=== PATIENT | female | born 2000 | race Caucasian/White ===

== ENCOUNTER 2020-06-27 00:15 | Emergency (ER) | payer BC, SELFPAY ==
[2020-06-27 00:18] VITALS: BP 117/60; PULSE 118; RESP 16; TEMP 35.9; O2SAT 99
--- NOTE | 2020-06-27 00:26 | ED.FEMALEGU ---
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 She reports that she had some pelvic pressure earlier like she may need to urinate, then when she stood up she noted that her pants were wet. She was afraid that her water may have broken. No abdominal pain, vaginal bleeding, discharge. Related Data Home Medications Medication Instructions Recorded Confirmed No Home Medications 06/27/20 06/27/20 Allergies Allergy/AdvReac Type Severity Reaction Status Date / Time No Known Allergies Allergy Unknown Verified 06/27/20 00:23 Review of Systems Review of Systems: All systems reviewed & are unremarkable except as noted in HPI and below PMFSH Past Medical History Medical History Healthy adult Surgical History Surgical History History of appendectomy Family History Family History Father Diabetes mellitus Social History Social History Smoking status: Never smoker Alcohol intake: never Exam Const: General: healthy appearing, no acute distress and alert Orientation/consciousness: patient oriented x3 HENMT: Head: normal to inspection Neck: Neck: normal visual inspection and no lymphadenopathy Chest: Chest palpation & inspection: no tenderness Resp: Effort & Inspection: normal respiratory effort Auscultation: clear to auscultation bilaterally, no rales, no rhonchi and no wheezes Cardio: Jugular venous distension: no JVD Rate: regular rate Rhythm: regular rhythm Heart sounds: no murmurs GI: Inspection: non-distended GI Palp: Yes Soft to palpation and No Tenderness to palpation present (GI) Skin: General skin exam: normal color Neuro: General: patient oriented x3 and moves all extremities Speech: normal speech Extrem: General: no edema Psych: Appearance: well kempt Affect: Anxious affect present Course Vital Signs Vital signs: Vital Signs Temperature 35.9 C L 06/27/20 00:18 Pulse Rate 118 H 06/27/20 00:18 Respiratory Rate 16 06/27/20 00:18 Blood Pressure 117/60 06/27/20 00:18 Pulse Oximetry 99 06/27/20 00:18 Temperature 35.9 C L 06/27/20 00:18 Pulse Rate 118 H 06/27/20 00:18 Respiratory Rate 16 06/27/20 00:18 Blood Pressure 117/60 06/27/20 00:18 Pulse Oximetry 99 06/27/20 00:18 Procedures Other Procedure Procedure 1: Other Procedure: Bedside transabdominal US IUP seen. Subtle suggestion of early heart activity. More consistent with 7-8 week gestation. MDM - Female Genitourinary MDM Narrative Medical decision making narrative: History benign. US reassuring. Discharge Plan Discharge Clinical Impression: Patient Disposition: Home, Self-Care Condition: Stable Instructions: (ED) Prescriptions: No Action No Home Medications RF: 0 Follow-up/Referrals: Rom Arango MD [Primary Care Provider] -
== END 2020-06-27 01:06 | disposition home or self-care (01) ==
PROVIDERS: Emergency Provider Emergency Medicine; PCP Obstetrics & Gynecology
DX: O26.891 Other specified pregnancy related conditions, first trimester (principal); Z3A.01 Less than 8 weeks gestation of pregnancy
CPT/HCPCS: 99281

== ENCOUNTER 2020-08-30 11:53 | Emergency (ER) | payer BC, SELFPAY ==
--- NOTE | ~2020-08-30 | US_ITS ---
EXAMINATION: US OB follow up DATE: 08/30/2020 13:38 INDICATION: Low abdominal pain. TECHNIQUE: Real-time ultrasound of the pelvis was performed. COMPARISON: None. FINDINGS: There is a single living fetus in breech presentation. The placenta is posterior, 3.4 cm from the ce rvix. heart rate is 137 beats per minute (bpm). The amniotic fluid volume is subjectively danielle l. The cervical length is normal on transabdominal images. The following biometric data were obtained: Biparietal diameter (BPD): 3.2 cm; head circumference (HC): 12.1 cm; abdominal circumference (AC): 10 .4 cm; femur length (FL): 1.8 cm. These measurements are concordant. Estimated weight is 137 g +/- 21 g, which correlates with 25th percentile when 02/13/21 is used as estimated date of delivery. As single measurements, these parameters are each equal to the following estimated gestational ages: BPD: 16 weeks 0 days. HC: 16 weeks 0 days. AC: 16 weeks 2 days. FL: 15 weeks 2 days. estimated gestational age based solely on measurements from this exam is 15 weeks 6 days +/- 1 weeks 1 days. IMPRESSION: 1. Single living fetus in breech presentation. 2. Estimated weight is 137 g +/- 21 g, which correlates with 25th percentile when 02/13/21 is u sed as estimated date of delivery. Reviewed, dictated and finalized at location A. AND MISCELLANEOUS REMITTANCE CLERK IMPRESSION: 1. Single living fetus in breech presentation. 2. Estimated weight is 137 g +/- 21 g, which correlates with 25th percen tile when 02/13/21 is used as estimated date of delivery.
[2020-08-30 11:55] VITALS: BP 111/61; PULSE 76; RESP 20; TEMP 35.9; O2SAT 100
[2020-08-30] MEDS: SODIUM CHLORIDE 0.9% IV 1,000 ML 999 ML IV CONT (12:28)
[2020-08-30 12:37] VITALS: BP 111/66; PULSE 70; RESP 14; TEMP 36.4; O2SAT 100
--- NOTE | 2020-08-30 12:37 | ED.FEMALEGU ---
HPI - Female Genitourinary General Chief complaint: Abdominal Pain Stated complaint: 16 wks , abd pain Time Seen by Provider: 08/30/20 12:20 Source: patient Mode of arrival: ambulatory Limitations: no limitations History of Present Illness HPI Narrative: Patient is a 18-year-old at 16 weeks complaining of lower abdominal pain that started yesterday. Patient had nausea but states that it has been going on throughout her and its nothing new. Patient denies any vaginal bleeding, vaginal discharge, urinary symptoms, fever or chills. Patient states that she is in second trimester ultrasound and it was normal. Patient had care during this . Related Data Home Medications Medication Instructions Recorded Confirmed ondansetron HCl 08/30/20 prochlorperazine maleate 08/30/20 promethazine 08/30/20 Allergies Allergy/AdvReac Type Severity Reaction Status Date / Time No Known Allergies Allergy Unknown Verified 08/30/20 11:57 Review of Systems Review of Systems: All systems reviewed & are unremarkable except as noted in HPI and below Constitutional: Constitutional: Denies body ache(s), Denies chills, Denies excessive sweating, Denies fatigue, Denies fever(s), Denies headache(s), Denies lethargy, Denies malaise, Denies weakness and Denies weight loss Eyes: Eyes: Denies blurry vision, Denies change in vision and Denies loss of vision ENT: Denies dizziness, Denies ear discharge, Denies headache(s), Denies lip swelling, Denies epistaxis, Denies nasal congestion, Denies neck pain, Denies throat swelling and Denies tongue swelling Cardiovascular: Cardiovascular: Denies chest pain, Denies chest pain at rest, Denies chest pain with activity, Denies diaphoresis, Denies rapid heart rate, Denies edema, Denies irregular heart rhythm, Denies lightheadedness, Denies palpitations, Denies dyspnea and Denies dyspnea on exertion Respiratory: Respiratory: Denies chest congestion, Denies cough, Denies hemoptysis, Denies dyspnea and Denies dyspnea on exertion Gastrointestinal: Gastrointestinal: Denies melena, Denies hematochezia, Denies diarrhea, Denies nausea, Denies vomiting and Denies hematemesis Musculoskeletal: Musculoskeletal: Denies abnormal gait, Denies deformity, Denies joint swelling, Denies limited range of motion, Denies neck pain and Denies numbness Neurologic: Denies Abnormal speech present, Denies abnormal gait, Denies confusion, Denies dizziness, Denies headache(s), Denies focal weakness, Denies loss of vision, Denies numbness, Denies Other visual disturbances, Denies Sensory deficit (Neuro) and Denies weakness Psychiatric: Psychiatric: Denies confusion, Denies depression, Denies auditory hallucinations, Denies homicidal ideation and Denies suicidal ideation Endocrine: Endocrine: Denies cold intolerance, Denies excessive sweating, Denies fatigue, Denies heat intolerance and Denies palpitations Hematologic/Lymphatic: Hematologic/Lymphatic: Denies easy bleeding and Denies easy bruising Allergic/Immunologic: Allergic/Immunologic: Denies lip swelling, Denies throat swelling and Denies tongue swelling PMFSH Past Medical History Medical History Healthy adult Surgical History Surgical History History of appendectomy Family History Family History Father Diabetes mellitus Social History Social History Smoking status: Never smoker Alcohol intake: never Exam Const: General: cooperative, healthy appearing, comfortable, no acute distress, well developed, alert and awake; No confusion Orientation/consciousness: oriented to person, oriented to place, oriented to time, patient oriented x3 and No confusion Limitations: no limitations HENMT: Head: normal to inspection,
[2020-08-30 12:47] LABS: Basophils Percent Auto 0.2 % (0.2-1.2); Eosinophils Absolute Auto 0.1 K/mm3 (0-0.3); Eosinophils Percent Auto 0.7 % (0-4.4); Hematocrit 40.2 % (37.0-47.0); Hemoglobin 13.7 g/dL (12.0-15.0); Immature Granulocyte Absolute 0.05 K/mm3 (0.00-0.031); Immature Granulocyte Percent A 0.6 % (0-0.5); Lymphocytes Absolute Auto 1.64 K/mm3 (0.9-3.2); Lymphocytes Percent Auto 20.3 % (18.3-44.2); Mean Corpuscular HGB Conc 34.1 g/dl (32-36); Mean Corpuscular Hemoglobin 31.3 pg (26-34); Mean Corpuscular Volume 91.8 fl (80-100); Mean Platelet Volume 10.8 fl (7.4-10.4); Monocytes Absolute Auto 0.4 K/mm3 (0.1-0.6); Monocytes Percent Auto 5.4 % (2.6-8.5); Neutrophils Absolute Auto 5.9 K/mm3 (1.3-6.7); Neutrophils Percent Auto 72.8 % (45.5-73.1); Platelet Count Result 180 k/mm3 (150-375); Red Blood Count 4.38 M/mm3 (4.2-5.4); Red Cell Distribution Width 12.6 % (11.5-14.5); White Blood Count 8.1 K/mm3 (4.5-10.0)
[2020-08-30 13:05] LABS: Alanine Aminotransferase 9 U/L (4-35); Albumin Level 3.9 g/dL (3.5-5.1); Alkaline Phosphatase 57 U/L (38-126); Anion Gap 5 mmol/L (8-16); Aspartate Amino Transferase 19 U/L (14-36); Bilirubin,Total 0.3 mg/dL (0.2-1.3); Blood Urea Nitrogen 7 mg/dL (7-17); Calcium 8.6 mg/dL (8.4-10.2); Carbon Dioxide 26 mmol/L (22-30); Chloride 107 mmol/L (98-107); Estimated CRCL calculation 201 ml/min; Estimated Glomerular Filt Rate > 60; Glucose 82 mg/dL (65-105); Lipase 23 U/L (23-300); Potassium 3.9 mmol/L (3.4-5.0); Sodium 138 mmol/L (137-145)
[2020-08-30 14:08] LABS: Add Urine Microscopic? YES; Appearance Urine Clear (Clear); Bacteria Urine Trace /hpf; Bilirubin Urine Negative (Negative); Blood Urine 2+ (Negative); Color Urine Yellow (Yellow); Glucose Urine UA Negative (Negative); Ketones Urine Negative (Negative); Leukocyte Esterase Ur Negative LEU/UL (Negative); Mucus Urine Rare /lpf; Nitrate Urine Negative (Negative); Protein Urine Negative (Negative); RBC Urine 0-2 /hpf (0-2); Specific Grav Ur 1.013 (1.001-1.035); Squamous Epithelial Cell Urine Many /hpf (Few); Urobilinogen Urine Negative mg/dL (<2.0); WBC Urine 0-3 /hpf
[2020-08-30] MEDS: ACETAMINOPHEN 325 MG TABLET 650 MG PO (14:19)
[2020-08-30 14:22] VITALS: BP 106/67; PULSE 57; RESP 18; TEMP 35.9; O2SAT 98
== END 2020-08-30 14:45 | disposition home or self-care (01) ==
PROVIDERS: Emergency Medicine; Emergency Provider Emergency Medicine; PCP Obstetrics & Gynecology
DX: O26.892 Other specified pregnancy related conditions, second trimester (principal); R10.30 Lower abdominal pain, unspecified; Z3A.16 16 weeks gestation of pregnancy
CPT/HCPCS: 36415; 76816; 80053; 81001; 83690; 84702; 85025; 96360; 99284; A9270; J7030

== ENCOUNTER 2020-12-16 22:32 | Observation (INO) | payer BC, SELFPAY ==
--- NOTE | 2020-12-16 22:32 | OBADM ---
This patient, Vanessa Thayer, admitted to the OB room [facility] for observation. Patient/family oriented to hospital policies and general routines including ID bracelet, bed and alarms, visiting hours, pain management, procedures, bathroom and other care routines, personal items, smoking policy, room service/diet, and visiting hours. Patient/Family are encouraged to report perceived risks to care and to ask questions if they do not understand what they are told or what they should do.
[2020-12-16 22:40] VITALS: BMI 32.1
--- NOTE | 2020-12-16 23:25 | PC.NURSE ---
Dr. Arango here and aware of pt assessment. Orders received. Pt contractions palpate mild and difficult to trace.
--- NOTE | 2020-12-16 23:50 | PC.NURSE ---
Dr. Arango on unit.; Orders for terbutaline. Pt feel mild contractions.
[2020-12-17] VITALS: BP 95/48; PULSE 87
--- NOTE | 2020-12-17 08:25 | PM.OBTRLD ---
OB - Triage/Final Diagnosis Visit Information Reason for evaluation: threatened labor Comments/Additional reasons for admission: I have assessed the risk for this patient, Vanessa Thayer, and determined that she would benefit from observation care. Evaluation Vital signs: Vital Signs - 24 hr 12/17/20 00:00 Pulse Rate 87 Blood Pressure 95/48 L
--- NOTE | 2020-12-18 17:10 | PM.OBTRLD ---
OB - Triage/Final Diagnosis Visit Information Reason for evaluation: threatened labor Comments/Additional reasons for admission: I have assessed the risk for this patient, Vanessa Thayer, and determined that she would benefit from observation care.
== END 2020-12-17 01:01 | disposition home or self-care (01) ==
PROVIDERS: Admitting Provider Obstetrics & Gynecology; Visit Provider Obstetrics & Gynecology
DX: O47.03 False labor before 37 completed weeks of gestation, third trimester (principal); Z3A.31 31 weeks gestation of pregnancy
CPT/HCPCS: G0378; G0379

== ENCOUNTER 2021-01-20 00:40 | Observation (INO) | payer BC, SELFPAY ==
[2021-01-20 01:02] VITALS: BMI 32.5
[2021-01-20 01:08] VITALS: BP 107/63; PULSE 91
--- NOTE | 2021-01-20 02:24 | OBADM ---
This patient, Vanessa Thayer, admitted to the OB room Labor/Delivery/Recovery 106 for observation. Patient/family oriented to hospital policies and general routines including ID bracelet, bed and alarms, visiting hours, pain management, procedures, bathroom and other care routines, personal items, smoking policy, room service/diet, and visiting hours. Patient/Family are encouraged to report perceived risks to care and to ask questions if they do not understand what they are told or what they should do.
--- NOTE | 2021-01-20 02:42 | PC.NURSE ---
Called Dr. Rodas cell phone, report given on FHT's, variables, reactive tracing, contractions, sve, pain and ROM plus being negative. Orders to d/c home
--- NOTE | 2021-01-27 07:24 | PM.OBTRLD ---
OB - Triage/Final Diagnosis Visit Information Comments/Additional reasons for admission: I have assessed the risk for this patient, Vanessa Thayer, and determined that she would benefit from observation care. Final Diagnosis (1) Vaginal discharge during : Code(s): O26.899 - Other specified related conditions, unspecified trimester; N89.8 - Other specified noninflammatory disorders of vagina Status: Acute
== END 2021-01-20 03:04 | disposition home or self-care (01) ==
PROVIDERS: Admitting Provider Obstetrics & Gynecology; Visit Provider Obstetrics & Gynecology
DX: O26.893 Other specified pregnancy related conditions, third trimester (principal); N89.8 Other specified noninflammatory disorders of vagina; Z3A.36 36 weeks gestation of pregnancy
CPT/HCPCS: 84112; G0378; G0379

== ENCOUNTER 2021-02-01 17:40 | Inpatient (IN) | payer MEDICAID, SELFPAY ==
[2021-02-01] VITALS (35 sets, daily range): BP systolic 94–134; BP diastolic 56–89; PULSE 59–129; TEMP 36.3–36.7; O2SAT 90–100; BMI 33.3
[2021-02-01] MEDS: LACTATED RINGERS 1,000 ML 125 ML IV CONT (19:05)
[2021-02-01] MEDS: OXYTOCIN 30 UNITS/NS 500 ML 30 UNITS/500 ML BAG IV CONT (19:05)
[2021-02-01 19:18] LABS: Basophils Percent Auto 0.2 % (0.2-1.2); Eosinophils Percent Auto 0.2 % (0-4.4); Hematocrit 35.6 % (37.0-47.0); Hemoglobin 11.8 g/dL (12.0-15.0); Immature Granulocyte Absolute 0.17 K/mm3 (0.00-0.031); Immature Granulocyte Percent A 1.3 % (0-0.5); Lymphocytes Percent Auto 13.7 % (18.3-44.2); Mean Corpuscular HGB Conc 33.1 g/dl (32-36); Mean Corpuscular Hemoglobin 30.1 pg (26-34); Mean Corpuscular Volume 90.8 fl (80-100); Monocytes Absolute Auto 0.8 K/mm3 (0.1-0.6); Monocytes Percent Auto 6.1 % (2.6-8.5); Neutrophils Absolute Auto 10.3 K/mm3 (1.3-6.7); Neutrophils Percent Auto 78.5 % (45.5-73.1); Platelet Count Result 228 k/mm3 (150-375); Red Blood Count 3.92 M/mm3 (4.2-5.4); Red Cell Distribution Width 13.3 % (11.5-14.5); White Blood Count 13.1 K/mm3 (4.5-10.0)
--- NOTE | 2021-02-01 19:26 | LDADM ---
This patient, Vanessa Thayer, was admitted to Labor/Delivery/Recovery 106 on 02/01/21 at 17:40. Plans for labor, pain management and were discussed with patient. Patient/family oriented to hospital policies and general routines including ID bracelet, bed and alarms, visiting hours, pain management, procedures, bathroom and other care routines, personal items, smoking policy, room service/diet and guest tray routines, security routines, and visiting hours. Patient/Family are encouraged to report perceived risks to care and to ask questions if they do not understand what they are told or what they should do. See OBIX for further documentation.
[2021-02-01] MEDS: fentaNYL CITRATE INJ (*CRX) 100 MCG/2 ML VIAL 50 MCG IV PUSH ×2 (22:24→22:59)
[2021-02-01] MEDS: ONDANSETRON INJ 4 MG/2 ML VIAL IV PUSH (23:01)
[2021-02-02] VITALS (143 sets, daily range): BP systolic 89–148; BP diastolic 37–97; PULSE 51–134; RESP 16–18; TEMP 36.4–37.2; O2SAT 92–100
[2021-02-02] MEDS: fentaNYL CITRATE INJ (*CRX) 100 MCG/2 ML VIAL IV PUSH ×2 (00:05→01:05)
--- NOTE | 2021-02-02 01:51 | WPDANESEPPF ---
Anes - Initial Pre Proc Eval Date/Time: 02/02/21 01:51 Surgeon: Rom Arango MD Pre Op Diagnosis: SROM Patient Data Age: 20 Gender: F Height: 1.55 m Weight: 80 kg Last Vital Signs Pulse 60 02/02/21 01:48 BP 111/56 L 02/02/21 01:48 Pulse Ox 99 02/02/21 01:50 Allergies Allergy/AdvReac Type Severity Reaction Status Date / Time No Known Allergies Allergy Unknown Verified 02/01/21 22:00 Home Medications Medication Instructions Recorded Confirmed Type sertraline [Zoloft] 50 mg PO DAILY 12/17/20 02/01/21 History Classic 1 tablet PO DAILY 01/20/21 02/01/21 History valacyclovir [Valtrex] 500 mg PO Q12H 01/24/21 01/24/21 History Laboratory Tests 02/01/21 02/01/21 02/01/21 19:07 19:07 19:07 WBC 13.1 K/mm3 H K/mm3 (4.5-10.0) RBC 3.92 M/mm3 L M/mm3 (4.2-5.4) Hgb 11.8 g/dL L g/dL (12.0-15.0) Hct 35.6 % L % (37.0-47.0) MCV 90.8 fl fl (80-100) MCH 30.1 pg pg (26-34) MCHC 33.1 g/dl g/dl (32-36) RDW 13.3 % % (11.5-14.5) Plt Count 228 k/mm3 k/mm3 (150-375) MPV 11.0 fl H fl (7.4-10.4) Immature Gran % (Auto) 1.3 % H % (0-0.5) Neut % (Auto) 78.5 % H % (45.5-73.1) Lymph % (Auto) 13.7 % L % (18.3-44.2) Rowan % (Auto) 6.1 % % (2.6-8.5) Eos % (Auto) 0.2 % % (0-4.4) Baso % (Auto) 0.2 % % (0.2-1.2) Lymph # (Auto) 1.80 K/mm3 K/mm3 (0.9-3.2) Rowan # (Auto) 0.8 K/mm3 H K/mm3 (0.1-0.6) Eos # (Auto) 0.0 K/mm3 K/mm3 (0-0.3) Baso # (Auto) 0.0 K/mm3 K/mm3 (0.0-0.1) Abs Immat Gran (auto) 0.17 K/mm3 H K/mm3 (0.00-0.031) Absolute Neuts (auto) 10.3 K/mm3 H K/mm3 (1.3-6.7) Absolute Nucleated RBC 0.0 K/mm3 K/mm3 (0.0-0.012) Nucleated RBC % 0.0 % % (0.0-0.2) RPR Pending Blood Type O Positive Antibody Screen Negative Patient hx anesthesia problems: none Family hx anesthesia problems: none PMFSH Past Medical History Medical History (Updated 02/02/21 @ 01:51 by Clark Jones MD) Anxiety Depression Healthy adult Obesity Surgical History Surgical History History of appendectomy Family History Family History Father Diabetes mellitus Mother Lupus Social History Social History Years smoked: 2 Smoking status: Former smoker Tobacco type: cigarettes Second hand tobacco smoke exposure: No Smoking end date: 07/25/20 Alcohol intake: never Substance use: former Other substance usage details: USES CBD OIL FOR ANXIETY Last use: PRIOR TO Spiritual care concerns: No Anes - Eval Final PreProcedure Day of Procedure 02/02/21 01:51 Patient weight: obese Heart: regular rate and rhythm Airway: Mallampati scale class II Anesthetic plan: proceed Anesthesia type and monitoring: regional epidural (for labor) and standard monitoring Informed Consent: The patient's anesthetic plan and its attendant risks and benefits were discussed with the patient/family/POA. Questions were solicited and answers provided to the satisfaction of the patient/family/POA.
[2021-02-02] MEDS: LORATADINE 10 MG TABLET PO (04:48)
[2021-02-02] MEDS: AMPICILLIN 2 GM/NS 100 ML 2 GM/100 ML BAG IVPB (04:49)
[2021-02-02] MEDS: ONDANSETRON INJ 4 MG/2 ML VIAL IV PUSH ×2 (06:06→11:05)
[2021-02-02] MEDS: diphenhydrAMINE HCl INJ 50 MG/ML VIAL 25 MG IV PUSH (06:08)
[2021-02-02 07:57] LABS: Rapid Plasma Reagin Non-Reactive (NonReactive)
[2021-02-02] MEDS: AMPICILLIN 1 GM/NS 50 ML 1 GM/50 ML BAG IVPB (08:34)
--- NOTE | 2021-02-02 10:21 | WPDHPUPDATE1 ---
History and Physical Update Update Date/Time: 02/02/21 10:21 History and Physical has been reviewed, including an updated exam of the patient. There are NO changes in the patient's condition. Risks, benefits, and alternatives have been discussed and questions answered. Patient agrees to proceed with procedure.
--- NOTE | 2021-02-02 10:21 | WPDOBADMIT ---
Obstetrics - Admit Note Admission Note: record reviewed. No pertinent additions to the history and/or any subsequent changes in the physical findings that are not consistent with the expected course of the were found. Additions to the history and/or subsequent changes in the physical findings follow. None.
--- NOTE | 2021-02-02 10:21 | PM.OBPRVD ---
OB - Delivery Note Procedure Route of delivery: Episiotomy description: None Laceration Description: None Specimen: No Quantitative Blood Loss (ml): 200 Anesthesia type: Epidural Disposition: floor Narrative: Patient prepped draped usual manner for this procedure. Maternal expulsive efforts readily delivered vertex. Rest of baby was delivered without difficulty. Cord clamped and cut placenta delivered spontaneously. Cervix vagina and vulva were inspected with no lacerations or tears. Immediate postop condition of mother and baby were both excellent. Baby Weeks of gestation at delivery: 38 gender: Female score one minute: 8 score five minutes: 9
[2021-02-02] MEDS: OXYTOCIN 30 UNITS/NS 500 ML 30 UNITS/500 ML BAG 125 UNITS IV CONT (10:32)
[2021-02-02] MEDS: ACETAMINOPHEN 325 MG TABLET 650 MG PO ×3 (10:40→22:08)
[2021-02-02] MEDS: IBUPROFEN 600 MG TABLET PO (12:33)
[2021-02-02] MEDS: SERTRALINE HCL 50 MG TABLET PO (12:56)
[2021-02-02] MEDS: WITCH HAZEL 40 PADS 1 PAD TOPICAL (13:27)
[2021-02-02] MEDS: BENZOCAINE 20% AER SPR (*SP) 56 GM CAN 1 SPRAY TOPICAL (13:27)
[2021-02-02] MEDS: LANOLIN (LANSINOH) 7.5 GM CREAM 1 APPLIC TOPICAL (13:28)
[2021-02-02] MEDS: DOCUSATE SODIUM 100 MG CAPSULE PO (17:29)
[2021-02-03] MEDS: ACETAMINOPHEN 325 MG TABLET 650 MG PO ×2 (04:32→16:35)
[2021-02-03 04:35] VITALS: BP 118/69; PULSE 66; RESP 18; TEMP 36.6; O2SAT 97
[2021-02-03] MEDS: IBUPROFEN 600 MG TABLET PO ×3 (04:49→19:31)
[2021-02-03 05:47] LABS: Hematocrit 35.1 % (37.0-47.0); Hemoglobin 11.5 g/dL (12.0-15.0)
--- NOTE | 2021-02-03 07:52 | PM.OBDSVD ---
DS: Admitting Diagnosis Admitting Diagnosis Admitting Diagnosis: OB - DS: Summary OB Procedures : None OB Procedures Intrapartum: Spontaneous Vag Delivery OB Procedures: : None Time Spent with Patient Time attestation: Total time spent providing and/or coordinating discharge services: DS: Data Data Completed and Pending Labs on day of discharge: Labs from last 24 hours 02/03/21 02/01/21 04:42 19:07 Hgb 11.5 L Hct 35.1 L RPR Non-reactive Discharge Plan Discharge Discharging Clinician: Rom Arango Patient Disposition: Home, Self-Care Activity: as tolerated Diet: as tolerated Patient Instructions: Antibiotic Form Stand Alone Forms: General Discharge Information Follow-up/Referrals: Rom Arango MD [Physician] - 3 Weeks Discharge Medications: New hydrocodone-acetaminophen 5-325 mg Tablet 1 tablet PO Q6H Qty: 12 RF: 0 ibuprofen 600 mg Tablet 600 mg PO Q6H PRN (Reason: Cramping) Qty: 30 RF: 0 Continued Classic 28 mg iron- 800 mcg Tablet 1 tablet PO DAILY RF: 0 sertraline [Zoloft] 50 mg tablet 50 mg PO DAILY RF: 0 Discontinued valacyclovir [Valtrex] 500 mg Tablet 500 mg PO Q12H RF: 0 Date of admission: 02/01/21 17:40 Primary Care Provider: PHYSICIAN,INDUSTRIAL ENERGY ENGINEER Admitting Provider: Rom Arango Attending physician on admission: Rom Arango Condition: Stable
--- NOTE | 2021-02-03 07:58 | WPDANLDPN2 ---
Anes-Prog Note L&D Date/Time: 02/03/21 07:58 Neuro status: Neuro function grossly intact. Cardiovascular status: normal Respiratory status: normal Airway patency: baseline Mental status: baseline Post-Op hydration status: normal Vital Signs: Last Vital Signs Temp 36.6 C 02/03/21 04:35 Pulse 66 02/03/21 04:35 Resp 18 02/03/21 04:35 BP 118/69 02/03/21 04:35 Pulse Ox 97 02/03/21 04:35 Pain score (VAS): 0 I/O: Intake & Output 02/02/21 02/02/21 02/03/21 15:59 23:59 07:59 Intake Total 1650 Output Total 250 Balance 1400 Post-procedural complaints: none Patient feedback: Patient satisfied with anesthetic care.
--- NOTE | 2021-02-03 09:15 | PC.NURSE ---
Primary RN requested feeding observation. Infant is able to freely thrust tongue past gum ridge. Skin is intact on both nipples, no redness and bruising noted. Reviewed infant feeding cues, frequencies, duration of feedings, feeding elimination flow sheet, and signs of adequate intake. Demonstrated stimulation techniques to wake for feeding. Assisted with to breast. Reviewed positioning/alignment in cross cradle, holding breast in ?U? hold and guided asymmetrical latch on. able to latch correctly. nursed eagerly, with steady draws and frequent swallowing for bursts followed with pausing. Suggested mother stimulate while feeding to increase stimulate, increase intake and to assist with maintaining deep latch. Reviewed signs of a correct latch, effective nursing and suck swallow ratio. would slip to shallow latch, mother reports tenderness. Demonstrated how to adjust latch more deeply while feeding. Mother reports she can feel change in latch and has no tenderness. Nipple care reviewed of lanolin after feedings, warm compresses and gel pads as needed. Instructed mother to call out for RN assistance if she is unable to latch infant for feeding or she has discomfort with nursing.
[2021-02-03 09:20] VITALS: BP 129/85; PULSE 64; RESP 16; TEMP 36.6; O2SAT 95
[2021-02-03] MEDS: DOCUSATE SODIUM 100 MG CAPSULE PO (09:30)
[2021-02-03] MEDS: MULTIVIT/MIN/PREN/FOL AC/IRON TABLET 1 TAB PO (09:30)
[2021-02-03 20:00] VITALS: BP 106/67; PULSE 61; RESP 16; TEMP 36.8; O2SAT 98
[2021-02-04] MEDS: IBUPROFEN 600 MG TABLET PO ×2 (01:27→07:43)
[2021-02-04] MEDS: ACETAMINOPHEN 325 MG TABLET 650 MG PO (05:17)
[2021-02-04 07:30] VITALS: BP 119/69; PULSE 118; RESP 16; TEMP 36.9; O2SAT 96
[2021-02-04] MEDS: MULTIVIT/MIN/PREN/FOL AC/IRON TABLET 1 TAB PO (07:43)
[2021-02-04] MEDS: MEASLES,MUMPS,RUBELLA VACCINE 0.5 ML VIAL (07:45)
--- NOTE | 2021-02-04 08:15 | PC.NURSE ---
Mother is able to independently latch infant with appropriate positioning/alignment. She denies any nipple discomfort, is feeding as required and waking to feed if needed. has had at least 8 effective feedings in the past 24 hours, and is currently meeting outcomes for weight, output, jaundice and feeding frequencies. Mother states she feels confident to continue effective at home. Reviewed transition to breast milk, signs of adequate intake, and engorgement/relief. Instructed to call ICP if intake/output less than required. Reviewed regular medications mother is taking. Information provided per Lora. Reviewed community resources on the [facility] website and in the Mom/Baby guide. Information on outpatient services provided. Mother has no further questions at this time.
--- NOTE | 2021-02-04 10:44 | PC.NURSE ---
Patient viewed the discharge video Mother & Baby Care, The First Two Weeks . Patient was given the opportunity and encouraged to ask questions. Patient verbalized understanding of information shared and has been given the mother/baby guide for home reference.
[2021-02-05 08:36] VITALS: BP 121/78; PULSE 61; RESP 20; TEMP 37.1; O2SAT 100
--- NOTE | 2021-02-06 12:23 | P.DS_ITS ---
DS: Admitting Diagnosis Admitting Diagnosis Admitting Diagnosis: OB - DS: Summary OB Procedures : None OB Procedures Intrapartum: Spontaneous Vag Delivery OB Procedures: : None Time Spent with Patient Time attestation: Total time spent providing and/or coordinating discharge services: Discharge Plan Discharge Consulting providers: Clark Jones Discharging Clinician: Rom Arango Patient Disposition: Home, Self-Care Activity: as tolerated Diet: as tolerated Discharge Instructions: Education: Mom and Baby Guide Given to: Mother Follow-Up: Call your delivering provider's office for an appointment to be seen in: 3 Weeks Mom and baby should come to the [facility] for the follow-up appointment. Appointment Date/Time: February 05, 2021 at 8:00 am What to expect at your follow-up visit: Physical Assessment Call [phone] if you are unable to keep your appointment time. BREAST CARE: * Wear a snug supportive bra. * For engorgement discomfort: Breast Feeding: * Apply warm moist washcloths * Express milk as needed to relieve engorgement * Wear loose clothing * For sore nipples: * Identify correct latch-on * Apply warm moist washcloths before and after nursing * Air dry nipples after nursing * May apply Lansinoh cream to nipples EPISIOTOMY/PERINEAL CARE: * Until bleeding stops, use your leila bottle after urinating * Change your pad frequently throughout the day * No tub baths until seen by your physician - You may shower ACTIVITY: * Rest as much as possible. * Do not exercise or lift anything heavier than your baby (such as laundry or other children.) * Avoid stairs or driving as much as possible. * Do not put anything into the vagina. No douching, tampons, or sexual activity until seen by physician. NOTIFY PHYSICIAN IF YOU HAVE ANY QUESTIONS OR IF ANY OF THE FOLLOWING SYMPTOMS OCCUR: * If your perineum becomes red, swollen, or more painful than what you have experienced in the hospital. * If your vaginal bleeding becomes foul smelling. * If your vaginal bleeding becomes more heavy than a period or if your bleeding changes from pink to bright red. However, you may pass an occasional walnut- sized clot once or twice for the first week . * If you experience a sharp, shooting pain in you calves. * If you discover a hard, reddened area on your breast or if you experience flu- like symptoms. DIET: * Eat regular, well-balanced meals. * Drink plenty of fluids daily. If , drink to thirst. Stand Alone Forms: General Discharge Information Follow-up/Referrals: Rom Arango MD [Physician] - 3 Weeks Discharge Medications: New hydrocodone-acetaminophen 5-325 mg Tablet 1 tablet PO Q6H Qty: 12 RF: 0 ibuprofen 600 mg Tablet 600 mg PO Q6H PRN (Reason: Cramping) Qty: 30 RF: 0 Continued Classic 28 mg iron- 800 mcg Tablet 1 tablet PO DAILY RF: 0 sertraline [Zoloft] 50 mg tablet 50 mg PO DAILY RF: 0 Discontinued valacyclovir [Valtrex] 500 mg Tablet 500 mg PO Q12H RF: 0 Date of admission: 02/01/21 17:40 Primary Care Provider: PHYSICIAN,AGRICULTURAL EQUIPMENT DESIGN ENGINEER Admitting Provider: Rom Arango Attending physician on admission: Rom Arango Condition: Stable
== END 2021-02-04 11:35 | disposition home or self-care (01) | DRG 560 ==
LOC: ANHLDR 18:50 → ANHOB2 02-02 13:00
PROVIDERS: Admitting Provider Obstetrics & Gynecology; Visit Provider Obstetrics & Gynecology
DX: O42.92 Full-term premature rupture of membranes, unspecified as to length of time between rupture and onset of labor (principal); Z3A.38 38 weeks gestation of pregnancy; Z37.0 Single live birth; Z87.891 Personal history of nicotine dependence
CPT/HCPCS: 36415; 85014; 85018; 85025; 86592; 86850; 86900; 86901; 90710; A9270; J0290; J1200; J2405; J2590; J2795; J3010; J7120

== ENCOUNTER 2021-08-25 11:54 | Emergency (ER) | payer OTHER, SELFPAY ==
--- NOTE | 2021-08-25 11:55 | ECG_ITS ---
Measurements Intervals Morris Rate: 81 P: 7 MO: 120 QRS: 30 QRSD: 107 T: 44 QT: 370 QTc: 431 Interpretive Statements SINUS RHYTHM DELAYED PRECORDIAL R/S TRANSITION BASELINE ARTIFACT- I, II, AVR BORDERLINE ECG Electronically Signed On 08-25-2021 16:01:35 SKI LIFT MECHANIC by Santosh Chappell D.O.
[2021-08-25 12:11] VITALS: BP 98/53; PULSE 80; RESP 18; TEMP 37.3; O2SAT 98
== END 2021-08-25 16:24 | disposition left against medical advice (07) ==
LOC: ANHED 16:45
DX: R06.02 Shortness of breath (principal)
CPT/HCPCS: 93005; 99199

== ENCOUNTER 2022-01-19 18:52 | Emergency (ER) | payer OTHER, SELFPAY ==
--- NOTE | ~2022-01-19 | CT_ITS ---
EXAMINATION: CT abdomen pelvis wo con DATE: 01/19/2022 22:08 INDICATION: BILAT flank painX SEVERAL DAYS, CLOTS IN URINE TECHNIQUE: Computed tomography (CT) of the abdomen and pelvis was performed without intravenous contr ast. Automated exposure control and iterative reconstruction technique were employed. The dose-length product was 190.51 mGy-cm. COMPARISON: MRI abdomen 11/23/2016. FINDINGS: Exam limited by paucity of intra-abdominal/pelvic fat. The majority of the ureters could not be confi dently visualized. Lower thorax: Unremarkable Liver: Normal. Biliary/Gallbladder: Gallbladder is partially contracted. No bile duct dilation. Pancreas: No mass or duct dilation. Spleen: Normal. Adrenals:No mass. Kidneys: No mass, stone, or hydronephrosis. GI tract: No small or large bowel dilation. Appendix surgically absent. Mesentery/Peritoneum: No ascites, mass, or free air. Retroperitoneum: No mass. Pelvis: Enlarged uterus, possibly secondary to fibroids. 3 x 2 mm calcification in the expected path of the right distal ureter just at the right UVJ. The urinary bladder is minimally filled. Trace free pelvic fluid within physiologic range. Soft Tissues: Soft tissues and body wall unremarkable. Bones: No acute osseous finding. IMPRESSION: Limited examination as described above. 3 x 2 mm calcification near the right UVJ possibly in the pat h of the distal right ureter. This may represent a distal right ureteral stone, without significant o bstructive uropathy versus inconsequential pelvic calcification. Possible uterine fibroids. Reviewed, dictated and finalized at location K. IMPRESSION: Limited examination as described above. 3 x 2 mm calcification near the right U VJ possibly in the path of the distal right ureter. This may represent a distal right ureteral stone, without significant obstructive uropathy versus inconseq uential pelvic calcification. Possible uterine fibroids.
[2022-01-19 19:23] VITALS: BP 106/61; PULSE 112; RESP 18; TEMP 36.6; O2SAT 95
[2022-01-19 21:56] VITALS: BP 97/48; PULSE 85; RESP 18; O2SAT 100
[2022-01-19 21:56] LABS: Basophils Percent Auto 0.2 % (0.2-1.2); Eosinophils Absolute Auto 0.1 K/mm3 (0-0.3); Eosinophils Percent Auto 0.9 % (0-4.4); Hematocrit 44.1 % (37.0-47.0); Hemoglobin 14.8 g/dL (12.0-15.0); Immature Granulocyte Absolute 0.06 K/mm3 (0.00-0.031); Immature Granulocyte Percent A 0.4 % (0-0.5); Lymphocytes Absolute Auto 2.65 K/mm3 (0.9-3.2); Lymphocytes Percent Auto 17.1 % (18.3-44.2); Mean Corpuscular HGB Conc 33.6 g/dl (32-36); Mean Corpuscular Hemoglobin 30.9 pg (26-34); Mean Corpuscular Volume 92.1 fl (80-100); Mean Platelet Volume 10.8 fl (7.4-10.4); Monocytes Absolute Auto 1.2 K/mm3 (0.1-0.6); Monocytes Percent Auto 7.8 % (2.6-8.5); Neutrophils Absolute Auto 11.4 K/mm3 (1.3-6.7); Neutrophils Percent Auto 73.6 % (45.5-73.1); Platelet Count Result 221 k/mm3 (150-375); Red Blood Count 4.79 M/mm3 (4.2-5.4); Red Cell Distribution Width 12.6 % (11.5-14.5); White Blood Count 15.5 K/mm3 (4.5-10.0)
[2022-01-19 21:57] LABS: Appearance Urine Slightly Cloudy (Clear); Bilirubin Urine 1+ (Negative); Blood Urine 3+ (Negative); Color Urine Yellow (Yellow); Glucose Urine UA Negative (Negative); Ketones Urine Trace mg/dL (Negative); Leukocyte Esterase Ur 2+ LEU/UL (Negative); Nitrate Urine Negative (Negative); Protein Urine 2+ mg/dL (Negative); Specific Grav Ur >= 1.030 (1.001-1.035); Urobilinogen Urine 0.2 mg/dL (<2.0); pH Urine 5.5 (5.0-9.0)
[2022-01-19 22:00] VITALS: BP 111/69
[2022-01-19 22:07] LABS: Alanine Aminotransferase 17 U/L (6-35); Albumin Level 4.7 g/dL (3.5-5.1); Alkaline Phosphatase 61 U/L (38-126); Anion Gap 8 mmol/L (8-16); Aspartate Amino Transferase 21 U/L (14-36); Bilirubin,Total 0.4 mg/dL (0.2-1.3); Blood Urea Nitrogen 14 mg/dL (7-17); Carbon Dioxide 29 mmol/L (22-30); Chloride 103 mmol/L (98-107); Estimated CRCL calculation 94 ml/min; Estimated Glomerular Filt Rate > 60; Glucose 83 mg/dL (65-110); Potassium 3.9 mmol/L (3.4-5.0); Sodium 140 mmol/L (137-145)
[2022-01-19 22:07] LABS: Mucus Urine Few /lpf; RBC Urine >75 /hpf (0-2); WBC Urine >75 /hpf
[2022-01-19 22:09] LABS: Add Urine Microscopic? YES
--- NOTE | 2022-01-19 22:30 | ED.GENADULT ---
HPI - General Adult General Chief complaint: Abdominal Pain Stated complaint: BILATERAL FLANK PAIN Time Seen by Provider: 01/19/22 21:40 History of Present Illness HPI narrative: 21-year-old female presented the emergency department for evaluation of lower abdominal cramping, hematuria and dysuria. Patient states for last few days she been having increased suprapubic cramping. Patient states today while she was urinating she was passing clots. Patient states she also has some sharp lower abdominal pain worse in the left flank but also present in right flank. Patient denies any prior history of kidney stones but does states she drinks more red bull and water. Related Data Home Medications Medication Instructions Recorded Confirmed sertraline 50 mg tablet (Zoloft) 50 mg PO DAILY 12/17/20 02/01/21 vits no.126-ferrous fum 1 tablet PO DAILY 01/20/21 02/01/21 28 mg iron-folic acid 800 mcg tablet (Classic ) Allergies Allergy/AdvReac Type Severity Reaction Status Date / Time No Known Allergies Allergy Unknown Verified 02/01/21 22:00 Review of Systems Review of Systems: CONSTITUTIONAL: Denies fever, chills, or sweats. EYES: Denies visual changes, redness, or discharge. ENT: Denies rhinorrhea, congestion, sore throat, or otalgia. CARDIOVASCULAR: Denies chest pain, palpitations, or edema. RESPIRATORY: Denies cough or dyspnea. GASTROINTESTINAL: See HPI GENITOURINARY: Some dysuria and bladder cramping. See HPI SKIN: Denies rash or itching. MUSCULOSKELETAL: Denies back pain, joint pain, or myalgia. NEUROLOGIC: Denies headache, numbness, or weakness. [facility] Past Medical History Medical History (Updated 01/19/22 @ 23:37 by Souleymane Mendoza MD) Anxiety Depression Healthy adult Obesity Surgical History Surgical History History of appendectomy Family History Family History Father Diabetes mellitus Mother Lupus Social History Social History Years smoked: 2 Smoking status: Former smoker Tobacco type: cigarettes Second hand tobacco smoke exposure: No Smoking end date: 01/01/21 Alcohol intake: never Substance use: former Other substance usage details: USES CBD OIL FOR ANXIETY Last use: PRIOR TO Spiritual care concerns: No Exam Narrative: APPEARANCE: Well appearing, no pain, no distress, well-nourished. HEAD: normocephalic, atraumatic. EYES: PERRLA/EOMI, conjunctivae clear. NOSE: Normal no drainage NECK: Supple. No adenopathy, no masses. RESPIRATORY: Airway patent, respirations nonlabored. Clear to auscultation bilaterally, no rales, rhonchi, wheezing. CARDIOVASCULAR: Regular rate and rhythm without murmurs rubs or gallops. ABDOMINAL: Soft, normal bowel sounds, nondistended, some suprapubic tenderness to palpation. Some left CVA tenderness to palpation greater than right. MUSCULOSKELETAL: Moves all extremities. Strength/ROM intact, No edema, No calf tenderness. NEURO: Alert. Cranial nerves II through XII intact. Grossly intact SKIN: Warm, dry. Normal Color Course Course Emergency Course: Discussed the CT results with Dr. Connelly, on-call for urology, for concern of the possibility of an obstructing stone with concomitant urinary tract infection. He felt with no significant obstruction and patient is not septic he was comfortable with the plan for treating her as a urinary tract infection and her having outpatient follow-up and reimaging at that time. He did not request a KUB to be done at this time. Patient did receive a dose of IV Rocephin. Patient will be discharged home with Keflex. Patient and family were updated on the results of the work-up and importance for close follow-up with urology. Vital Signs Vital signs: Vital Signs Temperature 97.8 F 01/19/22 19:23 Pulse Rate 112 H 01/19/22
[2022-01-19] MEDS: HYDROmorphone HCL INJ (*CRX) 1 MG/ML SYR 0.5 MG IV PUSH (22:37)
[2022-01-19] MEDS: ONDANSETRON INJ 4 MG/2 ML VIAL IV PUSH (22:39)
[2022-01-19] MEDS: SODIUM CHLORIDE 0.9% IV 500 ML 999 ML IV CONT (23:48)
[2022-01-20 00:27] VITALS: BP 104/47; PULSE 67; RESP 16; O2SAT 99
== END 2022-01-20 00:28 | disposition home or self-care (01) ==
PROVIDERS: Emergency Medicine; Emergency Provider Emergency Medicine
DX: N30.01 Acute cystitis with hematuria (principal); F41.9 Anxiety disorder, unspecified; F32.A Depression, unspecified; Z87.891 Personal history of nicotine dependence
CPT/HCPCS: 36415; 74176; 80053; 81001; 81025; 85025; 87040; 87077; 87086; 87088; 87186; 96365; 96367; 96375; 99284; J0131; J0696; J1170; J2405; J7040

== ENCOUNTER 2023-04-03 13:57 | Inpatient (IN) | payer OTHER, SELFPAY ==
--- NOTE | ~2023-04-03 | XR_ITS ---
EXAMINATION: XR chest 1V portable DATE: 04/05/2023 12:00 INDICATION: Chest pain. TECHNIQUE: A single frontal view of the chest was obtained. COMPARISON: CT abdomen and pelvis 04/03/2023 FINDINGS: There is no pneumonia, pleural effusion, or pneumothorax. The heart size is normal. IMPRESSION: 1. No acute cardiopulmonary disease. Reviewed, dictated and finalized at location A.
--- NOTE | ~2023-04-03 | US_ITS ---
EXAMINATION: US right upper quadrant DATE: 04/03/2023 19:35 INDICATION: abd pain, CT shows abnormal gallbladder TECHNIQUE: Multiple grayscale and Doppler ultrasound images of the right upper quadrant were obtained . COMPARISON: None available. FINDINGS: The visualized portions of the pancreas are normal. The liver is normal with normal echogen icity and echotexture. No surface nodularity. Normal hepatopetal flow in the main portal vein. Gallbl adder wall thickening to 3 mm, no pericholecystic fluid or stones. The common bile duct measures 3 mm . There was a positive sonographic Wetzel sign. Suggestion of intrahepatic bile duct dilation. IMPRESSION: Gallbladder wall thickening with positive sonographic Wetzel sign, may represent cholecystitis in the appropriate clinical context. Reviewed, dictated and finalized at location K. IMPRESSION: Gallbladder wall thickening with positive sonographic Wetzel sign, may represen t cholecystitis in the appropriate clinical context.
--- NOTE | ~2023-04-03 | CT_ITS ---
EXAMINATION: CT abdomen pelvis w con DATE: 04/03/2023 17:18 INDICATION: generalized abd pain TECHNIQUE: Computed tomography (CT) of the abdomen and pelvis was performed with 100 mL Omnipaque-350 intravenous contrast. Automated exposure control and iterative reconstruction technique were employe d. The dose-length product was 202.07 mGy-cm. COMPARISON: 01/19/2022. FINDINGS: Lower thorax: Unremarkable Liver: Normal. Biliary/Gallbladder: Gallbladder is compressed with mucosal hyperemia. Minimal pericholecystic fluid. Mild intrahepatic duct dilation. Pancreas: No mass or duct dilation. Spleen: Normal. Adrenals:No mass. Kidneys: No suspicious mass, obstructing stone, or hydronephrosis. GI tract: Moderate distal esophageal and gastric wall edema. No small or large bowel dilation. Surgic ally absent appendix. Mesentery/Peritoneum: No ascites, mass, or free air. Retroperitoneum: No mass. Pelvis: Bladder wall edema. The remaining pelvic organs are within normal limits. Stable pelvic phleb oliths. Soft Tissues: Soft tissues and body wall unremarkable. Bones: No acute osseous finding. IMPRESSION: Esophagitis/gastritis. Hyperemic but contracted gallbladder, with pericholecystic fluid and mild intrahepatic bile duct dila tion. Correlate with symptoms of right upper quadrant pain and biliary labs. Cystitis. Reviewed, dictated and finalized at location K. IMPRESSION: Esophagitis/gastritis. Hyperemic but contracted gallbladder, with pericholecystic fluid and mild intra hepatic bile duct dilation. Correlate with symptoms of right upper quadrant macario n and biliary labs. Cystitis.
--- NOTE | ~2023-04-03 | NM_ITS ---
EXAMINATION: NM hepatobiliary wo pharm DATE: 04/05/2023 09:56 INDICATION: Abdominal pain. COMPARISON: CT abdomen and pelvis 04/03/2023 TECHNIQUE: 5.8 mCi Tc-99m mebrofenin (Choletec) was administered intravenously. Scintigraphic images of the abdomen were obtained for one hour. Then, 2 mg morphine IV was administered, and imaging was continued for 30 minutes. FINDINGS: There is normal clearance of radiotracer from the blood pool. There is homogeneous tracer u ptake by the liver. Activity progresses to the bowel and gallbladder. IMPRESSION: 1. Patent cystic duct and common duct. Reviewed, dictated and finalized at location A.
[2023-04-03 14:01] VITALS: BP 122/74; PULSE 58; RESP 20; TEMP 36.2
[2023-04-03 14:15] LABS: Basophils Percent Auto 0.3 % (0.2-1.2); Eosinophils Percent Auto 0.4 % (0-4.4); Hematocrit 39.5 % (37.0-47.0); Hemoglobin 13.3 g/dL (12.0-15.0); Immature Granulocyte Absolute 0.03 K/mm3 (0.00-0.031); Immature Granulocyte Percent A 0.3 % (0-0.5); Lymphocytes Absolute Auto 1.95 K/mm3 (0.9-3.2); Lymphocytes Percent Auto 20.3 % (18.3-44.2); Mean Corpuscular HGB Conc 33.7 g/dl (32-36); Mean Corpuscular Hemoglobin 31.5 pg (26-34); Mean Corpuscular Volume 93.6 fl (80-100); Mean Platelet Volume 10.1 fl (7.4-10.4); Monocytes Absolute Auto 0.5 K/mm3 (0.1-0.6); Monocytes Percent Auto 5.3 % (2.6-8.5); Neutrophils Absolute Auto 7.1 K/mm3 (1.3-6.7); Neutrophils Percent Auto 73.4 % (45.5-73.1); Platelet Count Result 192 k/mm3 (150-375); Red Blood Count 4.22 M/mm3 (4.2-5.4); Red Cell Distribution Width 12.4 % (11.5-14.5); White Blood Count 9.6 K/mm3 (4.5-10.0)
[2023-04-03 14:27] LABS: Appearance Urine Cloudy (Clear); Bacteria Urine Rare /hpf; Bilirubin Urine Negative (Negative); Blood Urine 3+ (Negative); Color Urine Yellow (Yellow); Glucose Urine UA Negative (Negative); Ketones Urine Negative (Negative); Leukocyte Esterase Ur 2+ LEU/UL (Negative); Nitrate Urine Negative (Negative); Non Pathogenic Casts 0-2; Protein Urine 1+ mg/dL (Negative); RBC Urine >100 /hpf (0-2); Specific Grav Ur 1.018 (1.001-1.035); Squamous Epithelial Cell Urine Moderate /hpf (Few); WBC Urine >100 /hpf
[2023-04-03 14:30] LABS: Alanine Aminotransferase 15 U/L (6-35); Albumin Level 4.3 g/dL (3.5-5.1); Alkaline Phosphatase 45 U/L (38-126); Anion Gap 8 mmol/L (8-16); Aspartate Amino Transferase 19 U/L (14-36); Bilirubin,Total 0.5 mg/dL (0.2-1.3); Blood Urea Nitrogen 11 mg/dL (7-17); Calcium 8.7 mg/dL (8.4-10.2); Carbon Dioxide 27 mmol/L (22-30); Chloride 105 mmol/L (98-107); Estimated CRCL calculation 108 ml/min; Estimated Glomerular Filt Rate > 60; Glucose 99 mg/dL (65-110); Lipase 26 U/L (23-300); Potassium 3.8 mmol/L (3.4-5.0); Sodium 140 mmol/L (137-145)
[2023-04-03 14:30] LABS: Add Urine Microscopic? YES
--- NOTE | 2023-04-03 15:58 | ED.ABDPAIN ---
HPI - Abdominal Pain General Chief Complaint: Abdominal Pain <Lynne Cordon PA-C - Last Filed: 04/03/23 19:09> Stated Complaint: pelvic pain <PRADIP Swenson Last Filed: 04/03/23 19:09> Time Seen by Provider: 04/03/23 15:45 <PRADIP Swenson Last Filed: 04/03/23 19:09> Source: patient <PRADIP Morel Last Filed: 04/04/23 02:17> Mode of arrival: ambulatory <PRADIP Morel Last Filed: 04/04/23 02:17> Limitations: no limitations <PRADIP Morel Last Filed: 04/04/23 02:17> History of Present Illness HPI narrative: 23 y/o F with a history of anxiety, depression, IBS reports for evaluation for generalized abdominal pain that is worse in her pelvic region x2 days. Patient states the pain is intermittent and feels like someone is stabbing her with a knife. She states the pain lines up significantly when she is sitting and laying down and worsens with standing. She denies dysuria but does report hematuria. She states today she started having vaginal spotting. LMP was March 19, 2023. Her last bowel movement was last night and normal. She reports nausea, denies vomiting or diarrhea, fever. Denies vaginal discharge. She does state that she is concerned she may have an STD. She tested positive for chlamydia a few months ago and reported this to her sexual partner. She states that her sexual partner did state that he was treated, but she is not sure if she believes him and is worried that that may be causing her pain today. She also has a history of kidney stones but does not believe this pain is similar to her prior kidney stone. <PRADIP Swenson Last Filed: 04/03/23 19:09> Related Data Home Medications: Home Medications Medication Instructions Recorded Confirmed No Home Medications 04/03/23 04/03/23 <PRADIP Swenson Last Filed: 04/03/23 19:09> Allergies/Adverse Reactions: Allergies Allergy/AdvReac Type Severity Reaction Status Date / Time No Known Allergies Allergy Unknown Verified 04/03/23 23:35 <Lynne Cordon PA-C - Last Filed: 04/03/23 19:09> Review of Systems Review of Systems: CONSTITUTIONAL: Denies fever, chills EYES: Denies visual changes, redness, or discharge. ENT: Denies rhinorrhea, congestion, sore throat, or otalgia. CARDIOVASCULAR: Denies chest pain, palpitations, or edema. RESPIRATORY: Denies cough or dyspnea. GASTROINTESTINAL: See HPI GENITOURINARY: See HPI SKIN: Denies rash or itching. MUSCULOSKELETAL: Denies back pain, joint pain, or myalgia. NEUROLOGIC: Denies headache, numbness, dizziness, or weakness. PSYCHIATRIC: Denies anxiety or depression. <Lynne Cordon PA-C - Last Filed: 04/03/23 19:09> [facility] Past Medical History Medical History: Medical History Anxiety Depression Encounter for IUD removal 03/19/20 Mirena removal Healthy adult IBS (irritable bowel syndrome) Obesity PCR DNA positive for HSV1 Vaginal delivery 04/21/17 ICP in mother Nettie 02/02/21 no complications Cande <Lynne Codron PA-C - Last Filed: 04/03/23 19:09> Surgical History Surgical History: Surgical History History of appendectomy (11/30/16) <Lynne Cordon PA-C - Last Filed: 04/03/23 19:09> Family History Family History: Family History Father Diabetes mellitus Mother Lupus Multiple sclerosis Gallbladder disease <Lynne Cordon PA-C - Last Filed: 04/03/23 19:09> Social History Social History: Social History Social History: Patient elected her mother to be her surrogate and has 2 kids. 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 patient wishes to be a full code at this time Smoking packs
[2023-04-03] MEDS: ACETAMINOPHEN 500 MG TABLET 1000 MG PO (16:20)
[2023-04-03] MEDS: ONDANSETRON INJ 4 MG/2 ML VIAL IV PUSH ×3 (16:21→23:51)
[2023-04-03] MEDS: SODIUM CHLORIDE 0.9% IV 1,000 ML 999 ML IV CONT (16:21)
[2023-04-03] MEDS: MORPHINE SULFATE (*CRX) 4 MG/ML INJ IV PUSH ×3 (19:26→23:51)
[2023-04-03 19:49] LABS: Trichomonas Vag PCR NOT DETECTED (NOT DETECTE)
[2023-04-03 20:14] LABS: Chlamydia trachomatis NOT DETECTED (NOT DETECTE); Neisseria gonorrhoeae PCR NOT DETECTED (NOT DETECTE)
[2023-04-03] MEDS: PIPERACILLN/TAZ 3.375GM/NS50ML 3.375 GM/50 ML BAG IVPB (21:31)
--- NOTE | 2023-04-03 23:30 | ADMGEN ---
This patient, Vanessa Thayer, was admitted to Medical Room 342-01. Patient/family oriented to hospital policies and general routines including ID bracelet, bed and alarms, visiting hours, pain management, procedures, bathroom and other care routines, personal items, smoking policy, room service/diet, and visiting hours. Information on how to activate the Rapid Response Team has been discussed. Patient/Family are encouraged to report perceived risks to care and to ask questions if they do not understand what they are told or what they should do.
[2023-04-03 23:34] VITALS: BP 137/81; PULSE 95; RESP 18; TEMP 36.6; O2SAT 99
[2023-04-03 23:35] VITALS: BMI 24.0
[2023-04-03] MEDS: PANTOPRAZOLE SODIUM IV 80 MG in SODIUM CHLORIDE 0.9% IV 500 ML 50 MG IV CONT (23:35)
[2023-04-03 23:36] VITALS: BP 137/81; PULSE 95; RESP 18; TEMP 36.6; O2SAT 99; BMI 24.0
[2023-04-04] MEDS: SODIUM CHLORIDE 0.9% IV 1,000 ML 125 ML IV CONT ×3 (00:19→15:43)
[2023-04-04] MEDS: PIPERACILLN/TAZ 3.375GM/NS50ML 3.375 GM/50 ML BAG IVPB ×4 (02:41→20:35)
[2023-04-04 05:01] VITALS: BP 114/79; PULSE 88; RESP 18; TEMP 36.2; O2SAT 99
[2023-04-04] MEDS: ONDANSETRON INJ 4 MG/2 ML VIAL IV PUSH ×4 (05:53→23:43)
[2023-04-04] MEDS: MORPHINE SULFATE (*CRX) 4 MG/ML INJ IV PUSH ×6 (05:53→23:44)
[2023-04-04 08:30] VITALS: PULSE 74; RESP 14; O2SAT 97
--- NOTE | 2023-04-04 10:26 | PM.CNGS ---
Assessment and Plan Assessment and plan (1) Acute cholecystitis: Code(s): K81.0 - Acute cholecystitis Status: Acute Assessment and Plan: Patient presents with upper abdominal pain that radiates into her lower abdomen and mid back. CT showed a hyperemic but contracted gallbladder with pericholecystitis fluid and intrahepatic bile duct dilation. US showed gallbladder wall thickening and a positive sonographic Wetzel's sign, suggesting possible cholecystitis. No evidence of gallstones on either CT or ultrasound. WBC count and LFTs were normal. UA does suggest a urinary tract infection. There are multiple possible etiologies for her abdominal pain. We will initially get a HIDA scan to further evaluate her gallbladder. Continue the IV protonix infusion for now and we will get a GI consult. Continue IV Zosyn that would cover for both her urinary tract infection and possible cholecystitis. Will keep her NPO with IV fluids and analgesics as needed. Further plan depending on GI recommendations and HIDA scan results. (2) Abdominal pain: Code(s): R10.9 - Unspecified abdominal pain Status: Acute Assessment and Plan: Multiple possible etiologies. See plan above. (3) Esophagitis with gastritis: Code(s): K29.70 - Gastritis, unspecified, without bleeding; K20.90 - Esophagitis, unspecified without bleeding Status: Acute Assessment and Plan: Could be contributing to her abdominal pain. Continue IV Protonix and consult GI. (4) UTI (urinary tract infection): Qualifiers: Hematuria presence: without hematuria Urinary tract infection type: acute cystitis Qualified Code(s): N30.00 - Acute cystitis without hematuria Code(s): N39.0 - Urinary tract infection, site not specified Status: Acute Assessment and Plan: Urinalysis suggestive of UTI. CT showed evidence of cystitis. She is symptomatic with symptoms improving since antibiotics were started. Urine culture pending. Plan I have discussed the patient's case and plan of care with Dr. Jones. History of Present Illness Consult details Consult date: 04/04/23 Reason for consult: other (Acute cholecystitis) Requesting physician: Aki Cisneros PA-C Narrative: This is a 23-year-old woman who presented to the ER last night with complaints of abdominal pain for 3 days. She reports having an onset of upper abdominal pain that radiated across her entire upper abdomen and into her mid back that started on Tuesday. The pain also radiated down into her lower abdomen. The pain would come and go. She has associated nausea and poor appetite. She was able to eat some through the weekend and did not feel that this aggravated her pain. Yesterday, she had not eaten anything and her abdominal pain was so severe in the morning that she eventually presented to the ER for evaluation. Labs showed a white blood cell count of 9600, normal LFTs, and normal lipase. Urinalysis suggestive of UTI. Urine culture pending. With further questioning, she also reports having some urinary frequency and pelvic pressure over the past few days. She feels this is separate from her upper abdominal pain. Since being admitted, her pelvic pressure has nearly resolved. She does have a history of chlamydia that was treated a few months ago. She had repeat STD testing from the ER that was negative. CT scan of the abdomen and pelvis showed hyperemic but contracted gallbladder with pericholecystic fluid and mild intrahepatic bile duct dilation, esophagitis/gastritis, and cystitis. No CT evidence of gallstones. Right upper quadrant abdominal ultrasound showed gallbladder wall thickening with a positive sonographic Wetzel's sign, which may represent cholecystitis. She was admitted to the hospitalist service. Our service was consulted for acute cholecystitis. She is now seen on the medical floor. She is continuing to require IV morphine for her upper abdominal pain. She denies ev
--- NOTE | 2023-04-04 11:15 | PM.IMHP ---
H&P: HPI History of Present Illness Date/Time: 04/04/23 1115 Chief Complaint: Abdominal pain Narrative: Patient is a 23 year old female with a past medical history anxiety depression, IBS who presented to the ED with complaints of abdominal pain. Patient stated that the abdominal pain started on Tuesday. She did have some [employer] that day and was radiating to her upper back. She stated on Tuesday it got worse in the pain was started in the middle of her stomach. She also stated the pain was radiating to the sides and into her back those days as well. She did have some ROM noodles and some been station yesterday. She did have some nausea little bit ago. She did state that she was having a little bit of chest pain however it looks to be epigastric in nature. She denies any current shortness of breath, diarrhea, constipation, vomiting , headache, visual changes, hearing changes. In the ED the CT of the abdomen and pelvis did show gallbladder wall thickening. It also showed esophagitis and gastritis. UA did appear infectious. General surgery has been consulted. GI has also been consulted this time. Currently patient appears to be comfortable and stable at this time. Will advance diet to clear liquids. Spoke to General surgery who ordered a HIDA scan and stated that they were convinced this is all related to gallbladder. Mom and dad were both present patient did state that we could talking from the mom and dad. Partial history was obtained from mom as well. Patient is being admitted to the hospital service under observation. Review of Systems Review of Systems: All systems reviewed & are unremarkable except as noted in HPI and below PMFSH Past Medical History Medical History Anxiety Depression Encounter for IUD removal 03/19/20 Mirena removal Healthy adult IBS (irritable bowel syndrome) Obesity PCR DNA positive for HSV1 Vaginal delivery 04/21/17 ICP in mother Nettie 02/02/21 no complications Cande Surgical History Surgical History History of appendectomy (11/30/16) Family History Family History Father Diabetes mellitus Mother Lupus Multiple sclerosis Gallbladder disease Social History Social History (Updated 04/04/23 @ 14:19 by CARLOS Isbell) Social History: Patient elected her mother to be her surrogate and has 2 kids. 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 patient wishes to be a full code at this time Smoking packs per day: 1 Smoking cigarettes per day: 20.0 Years smoked: 1 Smoking pack-years: 1.00 Smoking status: Former smoker Tobacco type: e-cigarettes/vaping Second hand tobacco smoke exposure: No Smoking end date: 07/25/20 Additional smoking assessment comments: patient still vapes but does not smoke cigarettes anymore Alcohol intake: never Substance use: current Substance use type: marijuana Other substance usage details: USES CBD OIL FOR ANXIETY, smoke marijuana Last use: Yesterday Lack of Transportation: No Lack of Food: Never True Current Housing: I Have Housing Concerned About Future Housing: No Difficulty Paying Gas/Electric Bills: No Difficulty Paying for Meds: No Currently Unemployed: No Education: High School Diploma/GED Difficulty w/ Childcare or Family Care: No Living arrangements: with family Occupation/Education: occupation Gender identity (if verbalized by the patient): Female Sexual Orientation (if Verbalized by the Patient): Straight or Heterosexual Spiritual care concerns: No Agree to blood products: Yes Meds Home Medications and Allergies Home Medications Medication Instructions Recorded Confirmed Type No Home Medications 04/03/23 04/03/23 History Allergies Allergy/AdvReac Typ
[2023-04-04 14:00] VITALS: BP 108/67; PULSE 74; RESP 14; TEMP 36.7; O2SAT 97
--- NOTE | 2023-04-04 15:27 | WPDGICN ---
Assessment and Plan Assessment and plan (1) Abdominal pain: Code(s): R10.9 - Unspecified abdominal pain Status: Acute Assessment and Plan: his pain began on Tuesday and although was at intermittent day discontinue was now. Morphine does relieve it but seems to cause nausea also. CT scan showed possible esophagitis and gastritis. She has not had symptoms that would suggest either. And also he did have possible gallbladder issue, describing hyperemia of the gallbladder I do not know how color can be seen on a CT scan but that is the official reading. Also the right upper quadrant ultrasound showed some gallbladder wall thickening. She is scheduled have a HIDA scan tomorrow. (2) Esophagitis with gastritis: Code(s): K29.70 - Gastritis, unspecified, without bleeding; K20.90 - Esophagitis, unspecified without bleeding Status: Acute Assessment and Plan: This was per the official reading of her CT scan. She denies heartburn. She denies chronic indigestion or epigastric pain. (3) Acute cholecystitis: Code(s): K81.0 - Acute cholecystitis Status: Acute Assessment and Plan: CT scan shows some gallbladder wall hyperemia and leila cholecystic fluid. She will have a HIDA scan tomorrow Plan if HIDA scan is negative will consider endoscopy tomorrow. She would like to try clear liquids today. It appears that that had already been ordered a few hours ago but she has not yet received a tray. GI Consult Note Consult date/time: 04/04/23 15:27 HPI: Vanessa Thayer is a 23 year old female Who presented emergency room yesterday with a history of abdominal pain for 2 days. The pain was not constant but was intermittent. Was stabbing and worse if she was standing. if she is lying still and she is now it is better. This all began Tuesday evening. She developed abdominal pain which seemed to begin underneath the ribs on both sides and spread to the back. She has had kidney stones in the past and states that this pain was a bit similar although not as intense as kidney stone pain. She had pain again on Tuesday although this she slept fairly well Tuesday night. On Tuesday she began using a heating pad. By Tuesday she was very uncomfortable and at religion sad and peel afterwards crying. Subsequently that she was about to the emergency room. She has not had a fever. She has not had diarrhea. She apparently had a positive test for chlamydia few months ago. There has been no change in bowel movements. She has not been vomiting but was quite nauseated. She thinks that she could tolerate some liquids now. Review of Systems Review of Systems: All systems reviewed & are unremarkable except as noted in HPI and below PMFSH Past Medical History Medical History Anxiety Depression Encounter for IUD removal 03/19/20 Mirena removal Healthy adult IBS (irritable bowel syndrome) Obesity PCR DNA positive for HSV1 Vaginal delivery 04/21/17 ICP in mother Nettie 02/02/21 no complications [facility] Surgical History Surgical History History of appendectomy (11/30/16) Family History Family History Father Diabetes mellitus Mother Lupus Multiple sclerosis Gallbladder disease Social History Social History Social History: Patient elected her mother to be her surrogate and has 2 kids. 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 patient wishes to be a full code at this time Smoking packs per day: 1 Smoking cigarettes per day: 20.0 Years smoked: 1 Smoking pack-years: 1.00 Smoking status: Former smoker Tobacco type: e-cigarettes/vaping Second hand tobacco smoke exposure: No Smoking end date: 07/25/20 Additional smo
[2023-04-04] MEDS: PANTOPRAZOLE SODIUM IV 80 MG in SODIUM CHLORIDE 0.9% IV 500 ML 50 MG IV CONT (15:40)
[2023-04-04 20:27] VITALS: BP 115/66; PULSE 80; RESP 16; TEMP 37; O2SAT 99
[2023-04-04 20:30] VITALS: PULSE 80; RESP 16; O2SAT 99
[2023-04-04] MEDS: ACETAMINOPHEN 325 MG TABLET 650 MG PO (23:29)
[2023-04-05] MEDS: SODIUM CHLORIDE 0.9% IV 1,000 ML 125 ML IV CONT ×2 (01:51→15:16)
[2023-04-05] MEDS: PIPERACILLN/TAZ 3.375GM/NS50ML 3.375 GM/50 ML BAG IVPB ×4 (03:02→20:20)
[2023-04-05] MEDS: PANTOPRAZOLE SODIUM IV 80 MG in SODIUM CHLORIDE 0.9% IV 500 ML 50 MG IV CONT (03:07)
[2023-04-05 06:00] VITALS: BP 116/60; PULSE 74; RESP 18; TEMP 36.9; O2SAT 100
[2023-04-05] MEDS: MORPHINE SULFATE (*CRX) 2 MG/ML INJ IV PUSH (09:26)
[2023-04-05] MEDS: ONDANSETRON INJ 4 MG/2 ML VIAL IV PUSH (10:15)
--- NOTE | 2023-04-05 11:15 | PM.IMPN ---
Progress Note: A&P Assessment and Plan (1) Acute cholecystitis: Code(s): K81.0 - Acute cholecystitis Status: Acute Assessment and Plan: Presented with abdominal pain, worsening over the RUQ CT of abdomen showed Hyperemic but contracted gallbladder, with pericholecystic fluid and mild intrahepatic bile duct dilation US of the RUQ Gallbladder wall thickening with positive sonographic Wetzel sign, may represent cholecystitis in the appropriate clinical context. General surgery consulted Continue Zosyn for now WBC elevated on admission Trend labs Clear liquids Protonix on board pain medications ordered HIDA scan appears to be negative ruling out acute cholecystitis Continue IV therapy Adjust therapy as indicated (2) UTI (urinary tract infection): Qualifiers: Hematuria presence: without hematuria Urinary tract infection type: acute cystitis Qualified Code(s): N30.00 - Acute cystitis without hematuria Code(s): N39.0 - Urinary tract infection, site not specified Status: Acute Assessment and Plan: CT of the abdomen shows acute cystitis UA appears infectious Currently on Zosyn urine culture was negative for any growth trend urine output Adjust therapy as indicated (3) Nausea and vomiting: Qualifiers: Vomiting type: unspecified Qualified Code(s): R11.2 - Nausea with vomiting, unspecified Code(s): R11.2 - Nausea with vomiting, unspecified Status: Acute Assessment and Plan: Seems to be constant Also related to the pain Zofran ordered Add reglan if Zofran is not working Will check covid Wonder if this is related to marijuana use GI consulted Gallbladder ruled out (4) Abdominal pain: Qualifiers: Abdominal location: right upper quadrant Qualified Code(s): R10.11 - Right upper quadrant pain Code(s): R10.9 - Unspecified abdominal pain Status: Acute Assessment and Plan: Unknown origin Appears to be epigastric with radiation to the RUQ Continue pain medications RUQ ultrasound stable Will most likely need an EGD GI on board (5) Esophagitis with gastritis: Code(s): K29.70 - Gastritis, unspecified, without bleeding; K20.90 - Esophagitis, unspecified without bleeding Status: Acute Assessment and Plan: Seen on the CT GI consulted Most likely will get an EGD Continue Protonix (6) Chest pain: Code(s): R07.9 - Chest pain, unspecified Status: Acute Assessment and Plan: Complaints of chest pain EKG ordered Trops ordered chest xray ordered most likely related to GERD Plan Collaborated with General surgery Mom and Dad were both present and all questions answered plan of care updated. Time Spent With Patient Time: 48 minutes Time with patient: Greater than 35 minutes Subjective Date/time seen: 04/05/23 11:15 Interval history: 04/05/23 1115 patient just returned back from HIDA scan. HIDA did appear to be stable. Patient is still having a lot of vomiting and abdominal pain. Patient stated that she did not have very good experience and does not tolerate smells of food or is tolerating any kind of liquids. She stated that she has been tolerating ice chips. Currently she denies shortness of breath, diarrhea, constipation, fevers, sweats, chills. She did state that she is having chest pain however it seems to be more epigastric pain rating up. Will get an EKG, Trop, chest x-ray for the chest pain. 04/04/23? 1115 Patient is a 23 year old female with a past medical history? anxiety depression, IBS who presented to the ED with complaints of abdominal pain.? Patient stated that the abdominal pain started on Tuesday.? She did have some [employer] that day and was radiating to her upper back.? She stated on Tuesday it got worse in the pain was s
--- NOTE | 2023-04-05 11:15 | P.PNIM_ITS ---
Progress Note: A&P Assessment and Plan (1) Acute cholecystitis: Code(s): K81.0 - Acute cholecystitis Status: Acute Assessment and Plan: * Presented with abdominal pain, worsening over the RUQ * CT of abdomen showed Hyperemic but contracted gallbladder, with pericholecystic fluid and mild intrahepatic bile duct dilation * US of the RUQ Gallbladder wall thickening with positive sonographic Wetzel sign, may represent cholecystitis in the appropriate clinical context. * General surgery consulted * Continue Zosyn for now * WBC elevated on admission * Trend labs * Clear liquids * Protonix on board * pain medications ordered * HIDA scan appears to be negative ruling out acute cholecystitis * Continue IV therapy * Adjust therapy as indicated (2) UTI (urinary tract infection): Qualifiers: Hematuria presence: without hematuria Urinary tract infection type: acute cystitis Qualified Code(s): N30.00 - Acute cystitis without hematuria Code(s): N39.0 - Urinary tract infection, site not specified Status: Acute Assessment and Plan: * CT of the abdomen shows acute cystitis * UA appears infectious * Currently on Zosyn * urine culture was negative for any growth * trend urine output * Adjust therapy as indicated (3) Nausea and vomiting: Qualifiers: Vomiting type: unspecified Qualified Code(s): R11.2 - Nausea with vomiting, unspecified Code(s): R11.2 - Nausea with vomiting, unspecified Status: Acute Assessment and Plan: * Seems to be constant * Also related to the pain * Zofran ordered * Add reglan if Zofran is not working * Will check covid * Wonder if this is related to marijuana use * GI consulted * Gallbladder ruled out (4) Abdominal pain: Qualifiers: Abdominal location: right upper quadrant Qualified Code(s): R10.11 - Right upper quadrant pain Code(s): R10.9 - Unspecified abdominal pain Status: Acute Assessment and Plan: * Unknown origin * Appears to be epigastric with radiation to the RUQ * Continue pain medications * RUQ ultrasound stable * Will most likely need an EGD * GI on board (5) Esophagitis with gastritis: Code(s): K29.70 - Gastritis, unspecified, without bleeding; K20.90 - Esophagitis, unspecified without bleeding Status: Acute Assessment and Plan: * Seen on the CT * GI consulted * Most likely will get an EGD * Continue Protonix (6) Chest pain: Code(s): R07.9 - Chest pain, unspecified Status: Acute Assessment and Plan: * Complaints of chest pain * EKG ordered * Trops ordered * chest xray ordered * most likely related to GERD Plan Collaborated with General surgery Mom and Dad were both present and all questions answered plan of care updated. Time Spent With Patient Time: 48 minutes Time with patient: Greater than 35 minutes Subjective Date/time seen: 04/05/23 11:15 Interval history: 04/05/23 1115 patient just returned back from HIDA scan. HIDA did appear to be stable. Patient is still having a lot of vomiting and abdominal pain. Patient stated that she did not have very good experience and does not tolerate smells of food or is tolerating any kind of liquids. She stated that she has been tolerati
--- NOTE | 2023-04-05 11:39 | PM.PNGS ---
Progress Note: A&P Assessment and Plan (1) Abdominal pain: Qualifiers: Abdominal location: right upper quadrant Qualified Code(s): R10.11 - Right upper quadrant pain Code(s): R10.9 - Unspecified abdominal pain Status: Acute Assessment and Plan: Patient still having abdominal pain without any improvement. HIDA scan this morning was negative. Her cystic duct was patent suggesting she does not have acute cholecystitis. GI following for further workup of her abdominal pain. Plan for EGD today. (2) Abnormal CT of the abdomen: Code(s): R93.5 - Abnormal findings on diagnostic imaging of other abdominal regions, including retroperitoneum Status: Acute (3) Esophagitis with gastritis: Code(s): K29.70 - Gastritis, unspecified, without bleeding; K20.90 - Esophagitis, unspecified without bleeding Status: Acute Assessment and Plan: EGD today (4) UTI (urinary tract infection): Qualifiers: Hematuria presence: without hematuria Urinary tract infection type: acute cystitis Qualified Code(s): N30.00 - Acute cystitis without hematuria Code(s): N39.0 - Urinary tract infection, site not specified Status: Acute Assessment and Plan: Urine culture negative, continue antibiotics per hospitalist. Plan I have discussed the patient's case and plan of care with Dr. Jones. Subjective Subjective Date/Time Seen: 04/05/23 11:39 Patient reports: no new complaints, still having pain, flatus, nausea and afebrile Interval history: Patient is still having the same abdominal pain. She also reports nausea this morning. She does not feel there has been any improvement in her abdominal pain. She had a HIDA scan this morning. No other complaints at this time. Exam Const: General: comfortable, no acute distress and awake Orientation/consciousness: patient oriented x3 GI: Inspection: non-distended GI Palp: Yes Soft to palpation, Yes Tenderness to palpation present (GI) (Diffusely tender), Yes Guarding due to palpation present (GI) (Voluntary guarding throughout) and No Rebound tenderness present Auscultation: normal bowel sounds Objective Data Vital Signs Vital Signs: Vital Signs - 24 hr 04/04/23 14:00 04/04/23 20:27 04/04/23 20:30 Temperature 98.0 F 98.6 F Pulse Rate 74 80 80 Respiratory Rate 14 16 16 Blood Pressure 108/67 115/66 Pulse Oximetry 97 99 99 Oxygen Delivery Room Air 04/05/23 06:00 Temperature 98.5 F Pulse Rate 74 Respiratory Rate 18 Blood Pressure 116/60 Pulse Oximetry 100 Oxygen Delivery Intake/Output Intake/Output: Intake & Output 04/02/23 04/03/23 04/04/23 04/05/23 23:59 23:59 23:59 23:59 Intake Total 1050 3560 600 Output Total 0 Balance 1050 3560 600 Meds/Results Medications: Active Medications Generic Name Dose Route Start Last Admin Trade Name Freq PRN Reason Stop Dose Admin Acetaminophen 650 mg 04/04/23 22:47 04/04/23 23:29 Acetaminophen 325 Mg Tablet PO 650 mg Q6H PRN Administration Pain Rated 1-3 Sodium Chloride 1,000 mls @ 125 mls/hr 04/03/23 21:25 04/05/23 01:51 Normal Saline Iv IV CONT 125 mls/hr .Q8H ZACKERY Administration Piperacillin/Tazobactam/Dextrose 3.375 gm in 50 mls @ 100 mls/hr 04/04/23 03:00 04/05/23 11:20 Zosyn 3.375 Gm/Ns 50 Ml IVPB Infused Q6H ZACKERY Infusion Pantoprazole Sodium 80 mg/ 500 mls @ 50 mls/hr 04/04/23 14:00 04/05/23 03:07 Sodium Chloride IV CONT 50 mls/hr .Q10H ZACKERY Administration Morphine Sulfate 4 mg 04/03/23 21:24 04/04/23 23:44 Morphine Sulfate (*Crx) 4 Mg/Ml Inj IV PUSH 4 mg Q2H PRN Administration Pain Rated 7-10 Ondansetron HCl 4 mg 04/03/23 21:24 04/05/23 10:15 Ondansetron Inj 4 Mg/2 Ml Vial IV PUSH 4 mg Q4H PRN Administration Nausea Radiology Results: ITS Impressions Abdomen/Pelvis CT 04/03/23 18:25 IMPRESSION: Esophagitis/gastritis. Hyperemic but contracte
--- NOTE | 2023-04-05 11:45 | ECG_ITS ---
Measurements Intervals [employer] Rate: 69 P: 28 OK: 126 QRS: 25 QRSD: 105 T: 38 QT: 404 QTc: 433 Interpretive Statements SINUS RHYTHM NORMAL ECG COMPARED TO ECG 08/25/2021 12:05:08 NO SIGNIFICANT CHANGES Electronically Signed On 04-05-2023 13:05:57 CDT by Santosh Chappell D.O.
[2023-04-05 12:46] LABS: Troponin I < 0.012 ng/mL (0.000-0.034)
--- NOTE | 2023-04-05 13:14 | WPDANESEPPF ---
Anes - Initial Pre Proc Eval Procedure: Operation Date: 04/05/23 14:00 Proposed Procedures p Esophagogastroduodenoscopy - Aleksandr Mao MD Date/Time: 04/05/23 13:14 Surgeon: Cornelia Galvez DO Pre Op Diagnosis: Acute cholecystitis, UTI Patient Data Age: 23 Gender: F Height: 1.55 m Weight: 57.6 kg Last Vital Signs Temp 36.9 C 04/05/23 06:00 Pulse 74 04/05/23 06:00 Resp 18 04/05/23 06:00 BP 116/60 04/05/23 06:00 Pulse Ox 100 04/05/23 06:00 O2 Del Method Room Air 04/04/23 20:30 Allergies Allergy/AdvReac Type Severity Reaction Status Date / Time No Known Allergies Allergy Unknown Verified 04/03/23 23:35 Home Medications Medication Instructions Recorded Confirmed Type No Home Medications 04/03/23 04/03/23 History Laboratory Tests 04/05/23 12:06 Troponin I < 0.012 ng/mL (0.000-0.034) Patient hx anesthesia problems: none Family hx anesthesia problems: none Results Review: All pre-operative results and documents have been reviewed as part of the pre-operative evaluation. [facility] Past Medical History Medical History Anxiety Depression Encounter for IUD removal 03/19/20 Mirena removal Healthy adult IBS (irritable bowel syndrome) Obesity PCR DNA positive for HSV1 Vaginal delivery 04/21/17 ICP in mother Nettie 02/02/21 no complications [facility] Surgical History Surgical History History of appendectomy (11/30/16) Family History Family History Father Diabetes mellitus Mother Lupus Multiple sclerosis Gallbladder disease Social History Social History (Updated 04/05/23 @ 13:45 by Brian Vidal DO) Social History: Patient elected her mother to be her surrogate and has 2 kids. 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 patient wishes to be a full code at this time Smoking packs per day: 1 Smoking cigarettes per day: 20.0 Years smoked: 1 Smoking pack-years: 1.00 Smoking status: Former smoker Tobacco type: e-cigarettes/vaping Second hand tobacco smoke exposure: No Smoking end date: 07/25/20 Additional smoking assessment comments: patient still vapes but does not smoke cigarettes anymore Alcohol intake: never Substance use: current Substance use type: marijuana Other substance usage details: USES CBD OIL FOR ANXIETY, smoke marijuana daily Last use: Yesterday Lack of Transportation: No Lack of Food: Never True Current Housing: I Have Housing Concerned About Future Housing: No Difficulty Paying Gas/Electric Bills: No Difficulty Paying for Meds: No Currently Unemployed: No Education: High School Diploma/GED Difficulty w/ Childcare or Family Care: No Living arrangements: with family Occupation/Education: occupation Gender identity (if verbalized by the patient): Female Sexual Orientation (if Verbalized by the Patient): Straight or Heterosexual Spiritual care concerns: No Agree to blood products: Yes Anes - Eval Final PreProcedure Day of Procedure 04/05/23 13:14 Patient weight: normal Heart: regular rate and rhythm Lungs: clear to auscultation and normal air movement Airway: Mallampati scale class II Neurological: alert and oriented Last oral intake: >/= 8 hours ASA classification: III Emergent: yes Anesthetic plan: proceed Anesthesia type and monitoring: general GIVS and standard monitoring Results Review: All pre-operative results and documents have been reviewed as part of the pre-operative evaluation. Informed Consent: The patient's anesthetic plan and its attendant risks and benefits were discussed with the patient/family/POA. Questions were solicited and answers provided to the satisfaction of the patient/family/POA.
[2023-04-05 13:22] VITALS: BP 92/54; PULSE 87; RESP 18; TEMP 36.1; O2SAT 100
[2023-04-05] MEDS: LACTATED RINGERS 1,000 ML 150 ML IV CONT (13:27)
[2023-04-05 14:11] VITALS: BP 99/60; PULSE 63; RESP 18; O2SAT 100
[2023-04-05 14:21] VITALS: BP 104/63; PULSE 60; RESP 18; O2SAT 100
[2023-04-05 14:29] VITALS: BP 104/67; PULSE 60; RESP 14; O2SAT 100
[2023-04-05] MEDS: MORPHINE SULFATE (*CRX) 4 MG/ML INJ IV PUSH ×4 (15:36→22:24)
[2023-04-05 19:12] LABS: SARS-CoV-2 RNA PCR Negative (Negative)
[2023-04-05 20:19] VITALS: BP 122/66; PULSE 80; RESP 18; TEMP 37.4; O2SAT 98
[2023-04-05] MEDS: PANTOPRAZOLE SODIUM IV 40 MG VIAL IV PUSH (20:20)
[2023-04-06] MEDS: PIPERACILLN/TAZ 3.375GM/NS50ML 3.375 GM/50 ML BAG IVPB ×2 (02:19→08:46)
[2023-04-06] MEDS: SODIUM CHLORIDE 0.9% IV 1,000 ML 125 ML IV CONT ×3 (02:19→20:14)
[2023-04-06] MEDS: ACETAMINOPHEN 325 MG TABLET 650 MG PO (03:01)
[2023-04-06] MEDS: MORPHINE SULFATE (*CRX) 4 MG/ML INJ IV PUSH ×5 (03:04→22:35)
[2023-04-06 05:41] LABS: Basophils Percent Auto 0.4 % (0.2-1.2); Eosinophils Absolute Auto 0.1 K/mm3 (0-0.3); Eosinophils Percent Auto 1.2 % (0-4.4); Hemoglobin 11.6 g/dL (12.0-15.0); Immature Granulocyte Absolute 0.03 K/mm3 (0.00-0.031); Immature Granulocyte Percent A 0.6 % (0-0.5); Lymphocytes Percent Auto 25.8 % (18.3-44.2); Mean Corpuscular HGB Conc 33.1 g/dl (32-36); Mean Corpuscular Hemoglobin 31.9 pg (26-34); Mean Corpuscular Volume 96.2 fl (80-100); Mean Platelet Volume 10.6 fl (7.4-10.4); Monocytes Absolute Auto 0.5 K/mm3 (0.1-0.6); Monocytes Percent Auto 8.9 % (2.6-8.5); Neutrophils Absolute Auto 3.2 K/mm3 (1.3-6.7); Neutrophils Percent Auto 63.1 % (45.5-73.1); Platelet Count Result 148 k/mm3 (150-375); Red Blood Count 3.64 M/mm3 (4.2-5.4); Red Cell Distribution Width 12.2 % (11.5-14.5)
[2023-04-06 05:50] VITALS: BP 100/59; PULSE 65; RESP 20; TEMP 36.7; O2SAT 100
[2023-04-06 06:00] LABS: Alanine Aminotransferase 38 U/L (6-35); Albumin Level 3.1 g/dL (3.5-5.1); Alkaline Phosphatase 37 U/L (38-126); Anion Gap 4 mmol/L (8-16); Aspartate Amino Transferase 19 U/L (14-36); Bilirubin,Total 0.5 mg/dL (0.2-1.3); Blood Urea Nitrogen 5 mg/dL (7-17); Calcium 7.5 mg/dL (8.4-10.2); Carbon Dioxide 23 mmol/L (22-30); Chloride 108 mmol/L (98-107); Estimated CRCL calculation 108 ml/min; Estimated Glomerular Filt Rate > 60; Glucose 84 mg/dL (65-110); Magnesium 1.8 mg/dL (1.6-2.3); Potassium 3.4 mmol/L (3.4-5.0); Sodium 135 mmol/L (137-145)
[2023-04-06] MEDS: ONDANSETRON INJ 4 MG/2 ML VIAL IV PUSH ×2 (06:35→13:19)
[2023-04-06] MEDS: PANTOPRAZOLE SODIUM IV 40 MG VIAL IV PUSH ×2 (08:46→20:13)
--- NOTE | 2023-04-06 10:28 | P.PNAN_ITS ---
Anes - Prog Note Post-Op Date/Time: 04/06/23 10:28 Cardiovascular status: normal Respiratory status: normal Airway patency: baseline Mental status: baseline Post-Op hydration status: normal Vital Signs: Last Vital Signs Temp 36.7 C 04/06/23 05:50 Pulse 65 04/06/23 05:50 Resp 20 04/06/23 05:50 BP 100/59 L 04/06/23 05:50 Pulse Ox 100 04/06/23 05:50 O2 Del Method Room Air 04/06/23 08:00 Pain Score (VAS): 08/03 I/O: Intake & Output 04/05/23 04/06/23 04/06/23 23:59 07:59 15:59 Intake Total 850 1350 120 Balance 850 1350 120 Laboratory Tests 04/06/23 05:24 04/06/23 05:24 04/05/23 04/05/23 04/06/23 12:06 18:26 05:24 WBC 5.0 RBC 3.64 L Hgb 11.6 L Hct 35.0 L MCV 96.2 MCH 31.9 MCHC 33.1 RDW 12.2 Plt Count 148 L MPV 10.6 H Immature Gran % (Auto) 0.6 H Neut % (Auto) 63.1 Lymph % (Auto) 25.8 [place] % (Auto) 8.9 H Eos % (Auto) 1.2 Baso % (Auto) 0.4 Lymph # (Auto) 1.30 [place] # (Auto) 0.5 Eos # (Auto) 0.1 Baso # (Auto) 0.0 Abs Immat Gran (auto) 0.03 Absolute Neuts (auto) 3.2 Absolute Nucleated RBC 0.0 Nucleated RBC % 0.0 Sodium 135 L Potassium 3.4 Chloride 108 H Carbon Dioxide 23 Anion Gap 4 L BUN 5 L D Creatinine 0.50 L Estim Creat Clear Calc 108 Estimated GFR > 60 Glucose 84 Calcium 7.5 L Magnesium 1.8 Total Bilirubin 0.5 AST 19 ALT 38 H Alkaline Phosphatase 37 L Troponin I < 0.012 Total Protein 6.0 L Albumin 3.1 L SARS-CoV-2 RNA (RT-PCR) Negative Microbiology 04/03/23 14:16 Urine Clean Catch Urine Culture - Final Post-procedural complaints: none Patient Feedback: Patient satisfied with anesthetic care.
--- NOTE | 2023-04-06 13:50 | P.PNIM_ITS ---
Progress Note: A&P Assessment and Plan (1) Acute cholecystitis: Code(s): K81.0 - Acute cholecystitis Status: Acute Assessment and Plan: * Presented with abdominal pain, worsening over the RUQ * CT of abdomen showed Hyperemic but contracted gallbladder, with pericholecystic fluid and mild intrahepatic bile duct dilation * US of the RUQ Gallbladder wall thickening with positive sonographic Wetzel sign, may represent cholecystitis in the appropriate clinical context. * General surgery consulted and do not believe patient has acute cholecystitis. * Continue Zosyn for now * WBC elevated on admission but has returned within normal limits * Clear liquids * Protonix on board * pain medications ordered * HIDA scan appears to be negative ruling out acute cholecystitis * Discontinue IV antibiotic therapy (2) UTI (urinary tract infection): Qualifiers: Hematuria presence: without hematuria Urinary tract infection type: acute cystitis Qualified Code(s): N30.00 - Acute cystitis without hematuria Code(s): N39.0 - Urinary tract infection, site not specified Status: Acute Assessment and Plan: * CT of the abdomen shows acute cystitis * urine culture was negative for any growth and antibiotics discontinued. * trend urine output * Adjust therapy as indicated (3) Nausea and vomiting: Qualifiers: Vomiting type: unspecified Qualified Code(s): R11.2 - Nausea with vomiting, unspecified Code(s): R11.2 - Nausea with vomiting, unspecified Status: Acute Assessment and Plan: * Seems to be constant * Also related to the pain * COVID test negative * Wonder if this is related to marijuana use * GI consulted * Gallbladder ruled out (4) Abdominal pain: Qualifiers: Abdominal location: right upper quadrant Qualified Code(s): R10.11 - Right upper quadrant pain Code(s): R10.9 - Unspecified abdominal pain Status: Acute Assessment and Plan: * Unknown origin * Appears to be epigastric with radiation to the RUQ * Continue pain medications * RUQ ultrasound stable * Will most likely need an EGD * GI on board * 04/06 migraine cocktail given (5) Esophagitis with gastritis: Code(s): K29.70 - Gastritis, unspecified, without bleeding; K20.90 - Esophagitis, unspecified without bleeding Status: Acute Assessment and Plan: * Seen on the CT * GI consulted * EGD revealing gastritis * Continue Protonix (6) Chest pain: Code(s): R07.9 - Chest pain, unspecified Status: Acute Assessment and Plan: * Complaints of chest pain * EKG, trops and chest x-ray all within normal limits * most likely related to GERD Plan Collaborated with General surgery Mom and Dad were both present and all questions answered plan of care updated. Subjective Date/time seen: 04/06/23 13:50 Interval history: patient states that she continues to have nausea although has not vomit since yesterday morning. She is not tolerating a diet well. Every time she eats she states that she has extreme abdominal pain. Recommended that she stay on a clear liquid until abdominal pain subsides. Will try migraine cocktail to see if this helps patient's nausea and if this does not work will attempt Haldol for nausea. Exam Narrative:
--- NOTE | 2023-04-06 13:50 | PM.IMPN ---
Progress Note: A&P Assessment and Plan (1) Acute cholecystitis: Code(s): K81.0 - Acute cholecystitis Status: Acute Assessment and Plan: Presented with abdominal pain, worsening over the RUQ CT of abdomen showed Hyperemic but contracted gallbladder, with pericholecystic fluid and mild intrahepatic bile duct dilation US of the RUQ Gallbladder wall thickening with positive sonographic Wetzel sign, may represent cholecystitis in the appropriate clinical context. General surgery consulted and do not believe patient has acute cholecystitis. Continue Zosyn for now WBC elevated on admission but has returned within normal limits Clear liquids Protonix on board pain medications ordered HIDA scan appears to be negative ruling out acute cholecystitis Discontinue IV antibiotic therapy (2) UTI (urinary tract infection): Qualifiers: Hematuria presence: without hematuria Urinary tract infection type: acute cystitis Qualified Code(s): N30.00 - Acute cystitis without hematuria Code(s): N39.0 - Urinary tract infection, site not specified Status: Acute Assessment and Plan: CT of the abdomen shows acute cystitis urine culture was negative for any growth and antibiotics discontinued. trend urine output Adjust therapy as indicated (3) Nausea and vomiting: Qualifiers: Vomiting type: unspecified Qualified Code(s): R11.2 - Nausea with vomiting, unspecified Code(s): R11.2 - Nausea with vomiting, unspecified Status: Acute Assessment and Plan: Seems to be constant Also related to the pain COVID test negative Wonder if this is related to marijuana use GI consulted Gallbladder ruled out (4) Abdominal pain: Qualifiers: Abdominal location: right upper quadrant Qualified Code(s): R10.11 - Right upper quadrant pain Code(s): R10.9 - Unspecified abdominal pain Status: Acute Assessment and Plan: Unknown origin Appears to be epigastric with radiation to the RUQ Continue pain medications RUQ ultrasound stable Will most likely need an EGD GI on board 04/06 migraine cocktail given (5) Esophagitis with gastritis: Code(s): K29.70 - Gastritis, unspecified, without bleeding; K20.90 - Esophagitis, unspecified without bleeding Status: Acute Assessment and Plan: Seen on the CT GI consulted EGD revealing gastritis Continue Protonix (6) Chest pain: Code(s): R07.9 - Chest pain, unspecified Status: Acute Assessment and Plan: Complaints of chest pain EKG, trops and chest x-ray all within normal limits most likely related to GERD Plan Collaborated with General surgery Mom and Dad were both present and all questions answered plan of care updated. Subjective Date/time seen: 04/06/23 13:50 Interval history: patient states that she continues to have nausea although has not vomit since yesterday morning. She is not tolerating a diet well. Every time she eats she states that she has extreme abdominal pain. Recommended that she stay on a clear liquid until abdominal pain subsides. Will try migraine cocktail to see if this helps patient's nausea and if this does not work will attempt Haldol for nausea. Exam Narrative: GENERAL: Comfortable, no acute distress HENMT: moist mucous membranes EYES: EOM intact b/l NECK: no lymphadenopathy RESPIRATORY: clear to auscultation CARDIO: RRR GI: soft, mild diffuse tenderness, bowel sounds present SKIN: no rashes EXTREMITIES: no edema, redness or tenderness Objective Data Vital Signs Vital Signs: Vital Signs - 24 hr 04/05/23 14:11 04/05/23 14:21 04/05/23 14:29 Temperature Pulse Rate 63 60 60 Respiratory Rate 18 18 14 Blood Pressure 99/60 L 104/63 104/67 Pulse Oximetry 100 100 100 Oxygen Delivery Room Air Room Air Room Air
[2023-04-06 13:58] VITALS: BP 115/80; PULSE 56; RESP 14; TEMP 36.9; O2SAT 100
[2023-04-06] MEDS: diphenhydrAMINE HCl INJ 50 MG/ML VIAL IV PUSH (14:37)
[2023-04-06] MEDS: METOCLOPRAMIDE HCL INJ 10 MG/2 ML VIAL IV PUSH (14:37)
[2023-04-06] MEDS: KETOROLAC 15 MG/ML VIAL (*BKC) IV PUSH (14:37)
--- NOTE | 2023-04-06 14:40 | PM.PNGS ---
Progress Note: A&P Assessment and Plan (1) Abdominal pain: Qualifiers: Abdominal location: right upper quadrant Qualified Code(s): R10.11 - Right upper quadrant pain Code(s): R10.9 - Unspecified abdominal pain Status: Acute Assessment and Plan: Abdominal pain without any improvement. EGD showed NERD/gastritis. HIDA showed a patent cystic duct ruling out occlusion, but did not give an ejection fraction to determine the functionality of the gallbladder. Dr. Jones discussed treatment options with the patient given the severity of her abdominal pain and inability to tolerate a diet. Conservative treatment and proceeding with a laparoscopic cholecystectomy were both discussed. Description of the procedure, risks, benefits, expected outcomes, and expected recovery were discussed with the patient in detail. We discussed the risks of bile leak and bile duct injury, liver/bowel injury, bleeding, and infection. Also discussed the possibility of having to convert to an open procedure if necessary. The patient wishes to go ahead with a cholecystectomy. Will make her NPO after midnight and proceed with surgery tomorrow. (2) Abnormal CT of the abdomen: Code(s): R93.5 - Abnormal findings on diagnostic imaging of other abdominal regions, including retroperitoneum Status: Acute Plan I have discussed the patient's case and plan of care with Dr. Jones. Subjective Subjective Date/Time Seen: 04/06/23 14:40 Patient reports: still having pain, nausea and afebrile Interval history: Patient had EGD yesterday with findings of NERD, gastritis. Today, she is feeling about the same. She is still having a significant amount of epigastric abdominal pain. She is still nauseous and unable to even tolerate clear liquids. She has not vomited. No other new complaints. Review of Systems Review of Systems: ROS unchanged Exam Const: General: no acute distress, awake and uncomfortable (due to pain) Orientation/consciousness: patient oriented x3 GI: Inspection: non-distended GI Palp: Yes Soft to palpation, Yes Tenderness to palpation present (GI) (diffusely tender, worse in the epigastric area and RUQ), Yes Guarding due to palpation present (GI) (RUQ, voluntary guarding), No Hernia present and No Palpable mass present (no palpable mass) Auscultation: normal bowel sounds Objective Data Vital Signs Vital Signs: Vital Signs - 24 hr 04/05/23 20:19 04/06/23 05:50 04/06/23 08:00 Temperature 99.3 F 98.1 F Pulse Rate 80 65 Respiratory Rate 18 20 Blood Pressure 122/66 100/59 L Pulse Oximetry 98 100 Oxygen Delivery Room Air 04/06/23 13:58 Temperature 98.4 F Pulse Rate 56 L Respiratory Rate 14 Blood Pressure 115/80 Pulse Oximetry 100 Oxygen Delivery Intake/Output Intake/Output: Intake & Output 04/03/23 04/04/23 04/05/23 04/06/23 23:59 23:59 23:59 23:59 Intake Total 1050 3560 3482 2470 Output Total 0 Balance 1050 3560 3482 2470 Meds/Results Medications: Active Medications Generic Name Dose Route Start Last Admin Trade Name Freq PRN Reason Stop Dose Admin Acetaminophen 650 mg 04/04/23 22:47 04/06/23 03:01 Acetaminophen 325 Mg Tablet PO 650 mg Q6H PRN Administration Pain Rated 1-3 Haloperidol Lactate 2.5 mg 04/06/23 20:00 Haloperidol Lactate 5 Mg/Ml Vial IV PUSH Q8H PRN nausea Sodium Chloride 1,000 mls @ 125 mls/hr 04/03/23 21:25 04/06/23 13:19 Normal Saline Iv IV CONT 125 mls/hr .Q8H ZACKERY Administration Morphine Sulfate 4 mg 04/03/23 21:24 04/06/23 06:34 Morphine Sulfate (*Crx) 4 Mg/Ml Inj IV PUSH 4 mg Q2H PRN Administration Pain Rated 7-10 Pantoprazole Sodium 40 mg 04/05/23 21:00 04/06/23 08:46 Pantoprazole Sodium Iv 40 Mg Vial IV PUSH 40 mg Q12HR ZACKERY Administration Radiology Results: ITS Impressions Abdomen/Pelvis CT 04/03/23 18:25 IMPRESSION: Esophagitis/gastritis. Hyperemic but contra
[2023-04-06 21:18] VITALS: BP 120/71; PULSE 65; RESP 14; TEMP 37.2; O2SAT 100
[2023-04-06] MEDS: HALOPERIDOL LACTATE 5 MG/ML VIAL 2.5 MG IV PUSH (23:11)
[2023-04-07] VITALS (11 sets, daily range): BP systolic 108–139; BP diastolic 60–80; PULSE 56–107; RESP 12–18; TEMP 36.2–37.6; O2SAT 97–100
[2023-04-07] MEDS: MORPHINE SULFATE (*CRX) 4 MG/ML INJ IV PUSH ×4 (03:56→22:58)
[2023-04-07 05:54] LABS: Mean Corpuscular HGB Conc 33.3 g/dl (32-36); Mean Corpuscular Hemoglobin 31.3 pg (26-34); Mean Platelet Volume 10.9 fl (7.4-10.4); Platelet Count Result 158 k/mm3 (150-375); Red Blood Count 3.83 M/mm3 (4.2-5.4); White Blood Count 6.1 K/mm3 (4.5-10.0)
[2023-04-07 06:21] LABS: Anion Gap 7 mmol/L (8-16); Blood Urea Nitrogen 5 mg/dL (7-17); Calcium 7.6 mg/dL (8.4-10.2); Carbon Dioxide 22 mmol/L (22-30); Chloride 106 mmol/L (98-107); Estimated CRCL calculation 132 ml/min; Estimated Glomerular Filt Rate > 60; Glucose 55 mg/dL (65-110); Potassium 3.4 mmol/L (3.4-5.0); Sodium 135 mmol/L (137-145)
[2023-04-07 06:26] LABS: Glucose Point of Care 57 mg/dl (65-105)
[2023-04-07] MEDS: SODIUM CHLORIDE 0.9% IV 1,000 ML 125 ML IV CONT (06:38)
[2023-04-07] MEDS: DEXTROSE 50% 25 GM/50 ML SYRINGE IV PUSH (06:39)
[2023-04-07 08:31] LABS: Glucose Point of Care 112 mg/dl (65-105)
[2023-04-07] MEDS: DEXTROSE 5%/LACTATED RINGERS 1,000 ML 100 ML IV CONT ×2 (09:02→20:19)
[2023-04-07] MEDS: PANTOPRAZOLE SODIUM IV 40 MG VIAL IV PUSH ×2 (09:04→20:15)
[2023-04-07] MEDS: CHLORHEXIDINE GLUCONATE 4% SOL 120 ML BTL 1 APPLIC TOPICAL (09:06)
[2023-04-07] MEDS: ACETAMINOPHEN 325 MG TABLET 650 MG PO (10:35)
--- NOTE | 2023-04-07 13:10 | WPDANESEPPF ---
Anes - Initial Pre Proc Eval Procedure: Operation Date: 04/05/23 14:00 Proposed Procedures p Esophagogastroduodenoscopy - Aleksandr Mao MD Operation Date: 04/07/23 14:00 Proposed Procedures p Laparoscopic Cholecystectomy - Michael Jones MD Date/Time: 04/07/23 13:10 Surgeon: Cornelia Galvez DO Pre Op Diagnosis: Acute cholecystitis, UTI Patient Data Age: 23 Gender: F Height: 1.55 m Weight: 57.6 kg Last Vital Signs Temp 36.4 C L 04/07/23 05:03 Pulse 89 04/07/23 05:03 Resp 12 04/07/23 05:03 BP 108/60 04/07/23 05:03 Pulse Ox 99 04/07/23 05:03 O2 Del Method Room Air 04/07/23 08:00 Allergies Allergy/AdvReac Type Severity Reaction Status Date / Time No Known Allergies Allergy Unknown Verified 04/03/23 23:35 Home Medications Medication Instructions Recorded Confirmed Type No Home Medications 04/03/23 04/03/23 History Laboratory Tests 04/07/23 04/07/23 04/07/23 05:21 06:24 08:28 WBC 6.1 K/mm3 (4.5-10.0) RBC 3.83 L M/mm3 (4.2-5.4) Hgb 12.0 g/dL (12.0-15.0) Hct 36.0 L % (37.0-47.0) MCV 94.0 fl (80-100) MCH 31.3 pg (26-34) MCHC 33.3 g/dl (32-36) RDW 12.0 % (11.5-14.5) Plt Count 158 k/mm3 (150-375) MPV 10.9 H fl (7.4-10.4) Sodium 135 L mmol/L (137-145) Potassium 3.4 mmol/L (3.4-5.0) Chloride 106 mmol/L (98-107) Carbon Dioxide 22 mmol/L (22-30) Anion Gap 7 L mmol/L (8-16) BUN 5 L mg/dL (7-17) Creatinine 0.40 L mg/dL (0.7-1.0) Estim Creat Clear Calc 132 ml/min Estimated GFR > 60 (59 - ) Glucose 55 L* mg/dL (65-110) POC Capillary Glucose 57 L* mg/dl 112 H mg/dl (65-105) (65-105) Calcium 7.6 L mg/dL (8.4-10.2) Blood Type O Positive Antibody Screen Negative Patient hx anesthesia problems: none Family hx anesthesia problems: none Results Review: All pre-operative results and documents have been reviewed as part of the pre-operative evaluation. PMFSH Past Medical History Medical History Anxiety Depression Encounter for IUD removal 03/19/20 Mirena removal Healthy adult IBS (irritable bowel syndrome) Obesity PCR DNA positive for HSV1 Vaginal delivery 04/21/17 ICP in mother Nettie 02/02/21 no complications Cande Surgical History Surgical History History of appendectomy (11/30/16) Family History Family History Father Diabetes mellitus Mother Lupus Multiple sclerosis Gallbladder disease Social History Social History Social History: Patient elected her mother to be her surrogate and has 2 kids. 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 patient wishes to be a full code at this time Smoking packs per day: 1 Smoking cigarettes per day: 20.0 Years smoked: 1 Smoking pack-years: 1.00 Smoking status: Former smoker Tobacco type: e-cigarettes/vaping Second hand tobacco smoke exposure: No Smoking end date: 07/25/20 Additional smoking assessment comments: patient still vapes but does not smoke cigarettes anymore Alcohol intake: never Substance use: current Substance use type: marijuana Other substance usage details: USES CBD OIL FOR ANXIETY, smoke marijuana daily Last use: Yesterday Lack of Transportation: No Lack of Food: Never True Current Housing: I Have Housing Concerned About Future Housing: No Difficulty Paying Gas/Electric Bills: No Difficulty Paying for Meds: No Currently Unemployed: No Education: High School Diploma/GED Difficulty w/ Childcare or Family C
[2023-04-07] MEDS: LACTATED RINGERS 1,000 ML 30 ML IV CONT (13:29)
[2023-04-07] MEDS: SCOPOLAMINE 1.5 MG PATCH TRANSDERM (13:29)
--- NOTE | 2023-04-07 13:41 | WPDHPUPDATE1 ---
History and Physical Update Update Date/Time: 04/07/23 13:41 History and Physical has been reviewed, including an updated exam of the patient. There are NO changes in the patient's condition. Risks, benefits, and alternatives have been discussed and questions answered. Patient agrees to proceed with procedure.
[2023-04-07] MEDS: ceFAZolin 2 GM/D5W 50 ML 2 GM/50 ML BAG IVPB (13:59)
--- NOTE | 2023-04-07 14:12 | P.PNIM_ITS ---
Progress Note: A&P Assessment and Plan (1) Acute cholecystitis: Code(s): K81.0 - Acute cholecystitis Status: Acute Assessment and Plan: * Presented with abdominal pain, worsening over the RUQ * CT of abdomen showed Hyperemic but contracted gallbladder, with pericholecystic fluid and mild intrahepatic bile duct dilation * US of the RUQ Gallbladder wall thickening with positive sonographic Wetzel sign, may represent cholecystitis in the appropriate clinical context. * General surgery consulted and do not believe patient has acute cholecystitis. * WBC elevated on admission but has returned within normal limits * Protonix on board * pain medications prn * HIDA scan appears to be negative ruling out acute cholecystitis * Discontinue IV antibiotic therapy * 04/07 patient's right upper quadrant pain persists and general surgery decided to proceed with lap choly due to patient's symptoms. (2) UTI (urinary tract infection): Qualifiers: Hematuria presence: without hematuria Urinary tract infection type: acute cystitis Qualified Code(s): N30.00 - Acute cystitis without hematuria Code(s): N39.0 - Urinary tract infection, site not specified Status: Ruled-out Assessment and Plan: * CT of the abdomen shows acute cystitis * urine culture was negative for any growth and antibiotics discontinued. (3) Nausea and vomiting: Qualifiers: Vomiting type: unspecified Qualified Code(s): R11.2 - Nausea with vomiting, unspecified Code(s): R11.2 - Nausea with vomiting, unspecified Status: Acute Assessment and Plan: * Seems to be constant * Also related to the pain * COVID test negative * Wonder if this is related to marijuana use * GI consulted (4) Abdominal pain: Qualifiers: Abdominal location: right upper quadrant Qualified Code(s): R10.11 - Right upper quadrant pain Code(s): R10.9 - Unspecified abdominal pain Status: Acute Assessment and Plan: * Unknown origin * Appears to be epigastric with radiation to the RUQ * Continue pain medications * RUQ ultrasound stable * GI on board * 04/06 migraine cocktail given (5) Esophagitis with gastritis: Code(s): K29.70 - Gastritis, unspecified, without bleeding; K20.90 - Esophagitis, unspecified without bleeding Status: Acute Assessment and Plan: * Seen on the CT * GI consulted * EGD revealing gastritis * Continue Protonix (6) Chest pain: Code(s): R07.9 - Chest pain, unspecified Status: Acute Assessment and Plan: * Complaints of chest pain * EKG, trops and chest x-ray all within normal limits * most likely related to GERD Plan Collaborated with General surgery Mom and Dad were both present and all questions answered plan of care updated. Subjective Date/time seen: 04/07/23 14:12 Interval history: Patient continues to have right upper quadrant abdominal pain and unable to tolerate diet. General surgery has decided to go ahead with karla matthews this afternoon. She has not had any vomiting in the past 24 hours and her nausea has improved. Diet per General surgery postoperatively. Exam Narrative: GENERAL: Comfortable, no acute distress HENMT: moist mucous membranes EYES: EOM intact b/l NECK: no lymphadenopathy RESPIRATORY: clear t
--- NOTE | 2023-04-07 14:12 | PM.IMPN ---
Progress Note: A&P Assessment and Plan (1) Acute cholecystitis: Code(s): K81.0 - Acute cholecystitis Status: Acute Assessment and Plan: Presented with abdominal pain, worsening over the RUQ CT of abdomen showed Hyperemic but contracted gallbladder, with pericholecystic fluid and mild intrahepatic bile duct dilation US of the RUQ Gallbladder wall thickening with positive sonographic Wetzel sign, may represent cholecystitis in the appropriate clinical context. General surgery consulted and do not believe patient has acute cholecystitis. WBC elevated on admission but has returned within normal limits Protonix on board pain medications prn HIDA scan appears to be negative ruling out acute cholecystitis Discontinue IV antibiotic therapy 04/07 patient's right upper quadrant pain persists and general surgery decided to proceed with lap choly due to patient's symptoms. (2) UTI (urinary tract infection): Qualifiers: Hematuria presence: without hematuria Urinary tract infection type: acute cystitis Qualified Code(s): N30.00 - Acute cystitis without hematuria Code(s): N39.0 - Urinary tract infection, site not specified Status: Ruled-out Assessment and Plan: CT of the abdomen shows acute cystitis urine culture was negative for any growth and antibiotics discontinued. (3) Nausea and vomiting: Qualifiers: Vomiting type: unspecified Qualified Code(s): R11.2 - Nausea with vomiting, unspecified Code(s): R11.2 - Nausea with vomiting, unspecified Status: Acute Assessment and Plan: Seems to be constant Also related to the pain COVID test negative Wonder if this is related to marijuana use GI consulted (4) Abdominal pain: Qualifiers: Abdominal location: right upper quadrant Qualified Code(s): R10.11 - Right upper quadrant pain Code(s): R10.9 - Unspecified abdominal pain Status: Acute Assessment and Plan: Unknown origin Appears to be epigastric with radiation to the RUQ Continue pain medications RUQ ultrasound stable GI on board 04/06 migraine cocktail given (5) Esophagitis with gastritis: Code(s): K29.70 - Gastritis, unspecified, without bleeding; K20.90 - Esophagitis, unspecified without bleeding Status: Acute Assessment and Plan: Seen on the CT GI consulted EGD revealing gastritis Continue Protonix (6) Chest pain: Code(s): R07.9 - Chest pain, unspecified Status: Acute Assessment and Plan: Complaints of chest pain EKG, trops and chest x-ray all within normal limits most likely related to GERD Plan Collaborated with General surgery Mom and Dad were both present and all questions answered plan of care updated. Subjective Date/time seen: 04/07/23 14:12 Interval history: Patient continues to have right upper quadrant abdominal pain and unable to tolerate diet. General surgery has decided to go ahead with karla byron this afternoon. She has not had any vomiting in the past 24 hours and her nausea has improved. Diet per General surgery postoperatively. Exam Narrative: GENERAL: Comfortable, no acute distress HENMT: moist mucous membranes EYES: EOM intact b/l NECK: no lymphadenopathy RESPIRATORY: clear to auscultation CARDIO: RRR GI: soft, Right upper quadrant tenderness, bowel sounds present SKIN: no rashes EXTREMITIES: no edema, redness or tenderness Objective Data Vital Signs Vital Signs: Vital Signs - 24 hr 04/06/23 21:18 04/07/23 05:03 04/07/23 08:00 Temperature 99.0 F 97.5 F L Pulse Rate 65 89 Respiratory Rate 14 12 Blood Pressure 120/71 108/60 Pulse Oximetry 100 99 Oxygen Delivery Room Air 04/07/23 12:50 Temperature 99.4 F Pulse Rate 56 L Respiratory Rate 18 Blood Pressure 114/72 Pulse Oximetry 97 Oxygen Delivery Room
[2023-04-07] MEDS: LIDO 1%/EPINEPHRINE 1:100,000 20 ML VIAL INFILTRATE (14:20)
--- NOTE | 2023-04-07 15:08 | W.PM.PROC2 ---
Procedure Note - Detailed Date of Procedure 04/07/23 Pre-op Diagnosis Biliary colic Post-op Diagnosis Same Procedure Performed Laparoscopic cholecystectomy Surgeon Michael Jones MD Construction Safety Manager BECKY Bustamante Anesthesia General Indications Patient is a 23-year-old female who last week started having severe epigastric and right upper quadrant abdominal pain. Sonographic Wetzel sign was noted on exam. White blood cell count was normal. She was also noted to have a UTI was treated for that. Abdominal ultrasound showed no gallstones and no gallbladder sludge. Gallbladder wall was minimally thickened. HIDA scan was performed showing patent cystic duct but no ejection fraction was performed. The patient has not been able to tolerate clear liquids or solid food. She continues to have right upper quadrant pain with eating. EGD was performed showing no gastritis or peptic ulcer disease. Findings Gallbladder with wall was mildly edematous which might indicate some degree of mild acute cholecystitis. No gallstones were noted. Description of Procedure After informed consent was obtained patient was brought to the operative room she was placed supine position and general endotracheal anesthesia was administered. The abdomen was then prepped and draped usual sterile fashion. A time-out was then performed correctly identifying the patient as well as procedure to be performed. She was given perioperative IV antibiotics. I started by making a small incision the left upper quadrant and entered the abdomen with a direct optical insertion. Once inside the abdomen insufflated to adequate pneumoperitoneum of 15mmHg of CO2. A 5mm periumbilical trocar port as well as a 10mm epigastric trocar port 2 more right lateral subcostal 5mm trocar ports were then all placed under direct visualization. The gallbladder was visualized and there were no adhesions of the omentum duodenum or stomach to the gallbladder wall. The gallbladder wall was slightly edematous but there was no evidence of erythema the gallbladder wall. I held the gallbladder at the dome with a laparoscopic grasper and elevated the gallbladder over the right half liver towards the right shoulder. A 2nd grasper was then used to the gallbladder at the infundibulum. I then proceeded to strip down the visceroperitoneum off the infundibular gallbladder until I identified the cystic duct. Cystic duct was then dissected out circumferentially. Cystic artery was then identified dissected out circumferentially as well. Posterior wall the gallbladder infundibulum dissected free of the liver into the critical view was obtained. At this point I placed 2 clips proximal cystic duct and 2 clips distally high on infundibular gallbladder. The cystic duct was then divided with Endo Francie. In similar fashion cystic artery was clipped and divided as well. Gallbladder was then dissected off liver utilized electrocautery. It was removed without spilling any bile. The gallbladder was then placed into an Endo-Catch bag and brought out through the epigastric port site. The gallbladder and contents were sent to pathology for examination. I then irrigated out the gallbladder fossa copious sterile saline solution. The right upper quadrant was irrigated out as well. There is no evidence of bile leak and hemostasis was good. Of note there was some bloody fluid in the pelvis which may have come from a ruptured ovarian cyst. This was irrigated and aspirated at the end the procedure. All the port sites were then removed under direct visualization all port sites appeared hemostatic. I then allowed the abdomen decompressed. I then closed the epigastric 10mm trocar port fascial defect utilizing 0 Vicryl suture in the fascia. The skin edges in all the port sites were then approximated utilizing a running subcuticular 4 Monocryl suture. The incisions were then cleaned the skin glue sterile dressings were applied. The patient tolerated
[2023-04-07] MEDS: fentaNYL CITRATE INJ (*CRX) 100 MCG/2 ML VIAL 25 MCG IV PUSH ×2 (15:32→15:35)
--- NOTE | 2023-04-07 15:36 | SUR.PHASEI ---
1535: Simple mask removed.
[2023-04-07] MEDS: oxyCODONE HCL (*CRX) 5 MG TAB IR PO ×2 (16:13→22:09)
[2023-04-08 00:01] VITALS: BP 116/75; PULSE 88; RESP 18; TEMP 36.7; O2SAT 97
[2023-04-08] MEDS: HYDROcodone/acetaminophen (*CRX) 5-325 MG TABLET 1 TAB PO ×3 (00:09→09:09)
[2023-04-08] MEDS: MORPHINE SULFATE (*CRX) 4 MG/ML INJ IV PUSH ×4 (00:53→07:31)
[2023-04-08 05:08] VITALS: BP 116/68; PULSE 83; RESP 18; TEMP 36.8; O2SAT 98
[2023-04-08 05:50] LABS: Hematocrit 34.8 % (37.0-47.0); Mean Corpuscular HGB Conc 34.5 g/dl (32-36); Mean Corpuscular Hemoglobin 31.7 pg (26-34); Mean Corpuscular Volume 92.1 fl (80-100); Platelet Count Result 163 k/mm3 (150-375); Red Blood Count 3.78 M/mm3 (4.2-5.4); Red Cell Distribution Width 11.9 % (11.5-14.5)
[2023-04-08 05:57] LABS: Alanine Aminotransferase 33 U/L (6-35); Albumin Level 3.4 g/dL (3.5-5.1); Alkaline Phosphatase 35 U/L (38-126); Anion Gap 3 mmol/L (8-16); Aspartate Amino Transferase 26 U/L (14-36); Bilirubin,Total 0.4 mg/dL (0.2-1.3); Calcium 8.2 mg/dL (8.4-10.2); Carbon Dioxide 29 mmol/L (22-30); Chloride 101 mmol/L (98-107); Estimated CRCL calculation 132 ml/min; Estimated Glomerular Filt Rate > 60; Glucose 130 mg/dL (65-110); Potassium 3.5 mmol/L (3.4-5.0); Sodium 133 mmol/L (137-145)
[2023-04-08 05:59] LABS: Blood Urea Nitrogen < 2 mg/dL (7-17)
--- NOTE | 2023-04-08 08:01 | WPDANESPN ---
Anes - Prog Note Post-Op Date/Time: 04/08/23 08:01 Cardiovascular status: normal Respiratory status: normal Airway patency: baseline Mental status: baseline Post-Op hydration status: normal Vital Signs: Last Vital Signs Temp 36.8 C 04/08/23 05:08 Pulse 83 04/08/23 05:08 Resp 18 04/08/23 05:08 BP 116/68 04/08/23 05:08 Pulse Ox 98 04/08/23 05:08 O2 Del Method Room Air 04/07/23 15:45 O2 Flow Rate 6 04/07/23 15:20 Pain Score (VAS): no complaints I/O: Intake & Output 04/07/23 04/08/23 04/08/23 23:59 07:59 15:59 Intake Total 1480 300 Balance 1480 300 Laboratory Tests 04/08/23 05:15 04/08/23 05:15 04/07/23 04/08/23 08:28 05:15 WBC 8.0 RBC 3.78 L Hgb 12.0 Hct 34.8 L MCV 92.1 MCH 31.7 MCHC 34.5 RDW 11.9 Plt Count 163 MPV 11.0 H Sodium 133 L Potassium 3.5 Chloride 101 Carbon Dioxide 29 Anion Gap 3 L BUN < 2 L Creatinine 0.40 L Estim Creat Clear Calc 132 Estimated GFR > 60 Glucose 130 H POC Capillary Glucose 112 H Calcium 8.2 L Total Bilirubin 0.4 AST 26 ALT 33 Alkaline Phosphatase 35 L Total Protein 6.0 L Albumin 3.4 L Post-procedural complaints: none Patient Feedback: Patient satisfied with anesthetic care.
--- NOTE | 2023-04-08 08:03 | WPDANESPN ---
Anes - Prog Note Post-Op Date/Time: 04/08/23 08:03 Cardiovascular status: normal Respiratory status: normal Airway patency: baseline Mental status: baseline Post-Op hydration status: normal Vital Signs: Last Vital Signs Temp 36.8 C 04/08/23 05:08 Pulse 83 04/08/23 05:08 Resp 18 04/08/23 05:08 BP 116/68 04/08/23 05:08 Pulse Ox 98 04/08/23 05:08 O2 Del Method Room Air 04/07/23 15:45 O2 Flow Rate 6 04/07/23 15:20 Pain Score (VAS): no complaints I/O: Intake & Output 04/07/23 04/08/23 04/08/23 23:59 07:59 15:59 Intake Total 1480 300 Balance 1480 300 Laboratory Tests 04/08/23 05:15 04/08/23 05:15 04/07/23 04/08/23 08:28 05:15 WBC 8.0 RBC 3.78 L Hgb 12.0 Hct 34.8 L MCV 92.1 MCH 31.7 MCHC 34.5 RDW 11.9 Plt Count 163 MPV 11.0 H Sodium 133 L Potassium 3.5 Chloride 101 Carbon Dioxide 29 Anion Gap 3 L BUN < 2 L Creatinine 0.40 L Estim Creat Clear Calc 132 Estimated GFR > 60 Glucose 130 H POC Capillary Glucose 112 H Calcium 8.2 L Total Bilirubin 0.4 AST 26 ALT 33 Alkaline Phosphatase 35 L Total Protein 6.0 L Albumin 3.4 L Post-procedural complaints: none Patient Feedback: Patient satisfied with anesthetic care.
[2023-04-08] MEDS: PANTOPRAZOLE SODIUM IV 40 MG VIAL IV PUSH (09:09)
--- NOTE | 2023-04-08 10:34 | PM.PNGS ---
Progress Note: A&P Assessment and Plan (1) Abdominal pain: Qualifiers: Abdominal location: right upper quadrant Qualified Code(s): R10.11 - Right upper quadrant pain Code(s): R10.9 - Unspecified abdominal pain Status: Acute Assessment and Plan: Patient is status post laparoscopic cholecystectomy postop day 1. She is doing well today. Will see if she can advance to low-fat fat diet today. She can tolerate solid food then she may discharge home from a surgery standpoint. Lower abdominal pain has resolved and blood in the pelvis at the time of surgery suggest that she may have had a ruptured ovarian cyst. Washout of the pelvis has resolved that pain. Patient to follow-up see me in my office in 2 weeks. See discharge instructions. Subjective Subjective Date/Time Seen: 04/08/23 10:34 Interval history: Postop day 1 after laparoscopic cholecystectomy. Patient is feeling better today. Is trying to take clear liquids today and so far has not had any nausea. Lower abdominal pain has resolved. Upper abdominal pain is only remarkable for tenderness at the port sites. Exam GI: Other: Abdomen is soft and nondistended. Port site incisions are healing well without redness or any drainage. Expected tenderness around the port sites. Objective Data Vital Signs Vital Signs: Vital Signs - 24 hr 04/07/23 12:50 04/07/23 15:06 04/07/23 15:20 Temperature 37.4 C 36.2 C L 36.9 C Pulse Rate 56 L 107 H 66 Respiratory Rate 18 14 18 Blood Pressure 114/72 122/65 116/72 Pulse Oximetry 97 100 100 Oxygen Delivery Room Air Simple Face Mask Simple Face Mask Oxygen Flow Rate 6 6 04/07/23 15:35 04/07/23 15:45 04/07/23 16:10 Temperature 37.6 C 37.2 C 36.7 C Pulse Rate 68 60 62 Respiratory Rate 13 12 18 Blood Pressure 121/72 110/73 139/75 Pulse Oximetry 98 97 100 Oxygen Delivery Room Air Room Air Oxygen Flow Rate 04/07/23 16:26 04/07/23 16:55 04/07/23 17:55 Temperature 36.6 C 36.9 C 37.2 C Pulse Rate 62 77 89 Respiratory Rate 16 16 16 Blood Pressure 118/73 121/80 119/77 Pulse Oximetry 99 98 99 Oxygen Delivery Oxygen Flow Rate 04/07/23 20:12 04/08/23 00:01 04/08/23 05:08 Temperature 36.4 C 36.7 C 36.8 C Pulse Rate 60 88 83 Respiratory Rate 16 18 18 Blood Pressure 116/60 116/75 116/68 Pulse Oximetry 100 97 98 Oxygen Delivery Oxygen Flow Rate Intake/Output Intake/Output: Intake & Output 04/05/23 04/06/23 04/07/23 04/08/23 23:59 23:59 23:59 23:59 Intake Total 3482 3880 3230 540 Output Total 0 Balance 3482 3880 3230 540 Meds/Results Medications: Active Medications Generic Name Dose Route Start Last Admin Trade Name Freq PRN Reason Stop Dose Admin Acetaminophen 650 mg 04/04/23 22:47 04/07/23 10:35 Acetaminophen 325 Mg Tablet PO 650 mg Q6H PRN Administration Pain Rated 1-3 Hydrocodone Bitart/Acetaminophen 1 tab 04/07/23 15:02 04/08/23 09:09 Hydrocodone/Acetaminophen (*Crx) 5-325 Mg Tablet PO 1 tab Q4H PRN Administration Pain Rated 4-6 Ondansetron HCl 4 mg 04/07/23 14:15 Ondansetron Inj 4 Mg/2 Ml Vial IV PUSH Q4H PRN Nausea And Vomiting Pantoprazole Sodium 40 mg 04/05/23 21:00 04/08/23 09:09 Pantoprazole Sodium Iv 40 Mg Vial IV PUSH 40 mg Q12HR ZACKERY Administration Radiology Results: ITS Impressions Abdomen/Pelvis CT 04/03/23 18:25 IMPRESSION: Esophagitis/gastritis. Hyperemic but contracted gallbladder, with pericholecystic fluid and mild intrahepatic bile duct dilation. Correlate with symptoms of right upper quadrant pain and biliary labs. Cystitis. Upper Quadrant Ultrasound 04/03/23 20:12 IMPRESSION: Gallbladder wall thickening with positive sonographic Wetzel sign, may represent cholecystitis in the appropriate clinical context. Hepatobiliary Scan Nuclear Medicine 04/05/23 10:07 IMPRESSION: 1. Patent cystic duct and common duct.
[2023-04-08] MEDS: ACETAMINOPHEN 325 MG TABLET 650 MG PO (10:48)
--- NOTE | 2023-04-08 11:28 | PM.DS ---
DS: Admitting Diagnosis Discharge Date 04/08/23 Admitting Diagnosis Acute cholecystitis DS: Discharge Diagnosis Discharge Diagnosis (1) Acute cholecystitis: Code(s): K81.0 - Acute cholecystitis Status: Acute (2) UTI (urinary tract infection): Qualifiers: Hematuria presence: without hematuria Urinary tract infection type: acute cystitis Qualified Code(s): N30.00 - Acute cystitis without hematuria Code(s): N39.0 - Urinary tract infection, site not specified Status: Ruled-out (3) Nausea and vomiting: Qualifiers: Vomiting type: unspecified Qualified Code(s): R11.2 - Nausea with vomiting, unspecified Code(s): R11.2 - Nausea with vomiting, unspecified Status: Acute (4) Abdominal pain: Qualifiers: Abdominal location: right upper quadrant Qualified Code(s): R10.11 - Right upper quadrant pain Code(s): R10.9 - Unspecified abdominal pain Status: Acute (5) Esophagitis with gastritis: Code(s): K29.70 - Gastritis, unspecified, without bleeding; K20.90 - Esophagitis, unspecified without bleeding Status: Acute (6) Chest pain: Code(s): R07.9 - Chest pain, unspecified Status: Acute DS: Summary Hospital Course Hospital Course: this is a 23-year-old female with past medical history of anxiety depression and IBS that presented to the ED on 04/04/2023 due to abdominal pain radiating to the back. She also complained of some nausea and epigastric pain. She did not have any diarrhea, vomiting, headache, visual changes or shortness of breath. CT of abdomen pelvis revealed gallbladder thickening, esophagitis and gastritis. UA originally appeared infected although culture came back negative. General surgery consulted for gallbladder. Patient had HIDA scan and HIDA scan came back within normal limits. Patient had continuous nausea that turned into vomiting. Patient was given IV fluids and pain medications for a couple days and encouraged to try some clear liquids. Patient was unable to tolerate diet due to the abdominal pain. General surgery re-evaluated and due to patient's ongoing symptoms they went through with a laparoscopic cholecystectomy on 04/07/2023. Patient tolerated the surgery well and her nausea improved postoperatively. Patient did have some postoperative surgical site pain but is tolerating a diet. Patient's labs and vital signs are stable and she is medically cleared by both surgery and the hospitalist team for discharge. Time Spent with Patient Time attestation: Total time spent providing and/or coordinating discharge services: Exam Narrative: GENERAL: Comfortable, no acute distress HENMT: moist mucous membranes EYES: EOM intact b/l NECK: no lymphadenopathy RESPIRATORY: clear to auscultation CARDIO: RRR GI: soft, tenderness at surgical site, bowel sounds present SKIN: no rashes EXTREMITIES: no edema, redness or tenderness DS: Data Data Completed and Pending Completed studies during hospitalization: Pending at discharge 04/05/23 14:05 Surgical [PTH] Routine Pending studies at discharge: Pending at discharge 04/07/23 14:08 Surgical [PTH] Routine Labs on day of discharge: Labs from last 24 hours 04/08/23 05:15 WBC 8.0 RBC 3.78 L Hgb 12.0 Hct 34.8 L MCV 92.1 MCH 31.7 MCHC 34.5 RDW 11.9 Plt Count 163 MPV 11.0 H Sodium 133 L Potassium 3.5 Chloride 101 Carbon Dioxide 29 Anion Gap 3 L BUN < 2 L Creatinine 0.40 L Estim Creat Clear Calc 132 Estimated GFR > 60 Glucose 130 H Calcium 8.2 L Total Bilirubin 0.4 AST 26 ALT 33 Alkaline Phosphatase 35 L Total Protein 6.0 L Albumin 3.4 L Discharge Plan Discharge Attending physician on discharge: Kory Levin Consulting providers: Michael Jones; Aleksandr Mao Discharging Clinician: Polly Dillard Patient Disposition: Home, Self-Care Activity: november shower Di
[2023-04-08 14:00] VITALS: BP 120/72; PULSE 89; RESP 20; TEMP 36.6; O2SAT 99
== END 2023-04-08 15:00 | disposition home or self-care (01) | DRG 263 ==
LOC: ANHED 21:35 → ANH3MED 22:38
PROVIDERS: Internal Medicine Gastroenterology; Nurse Practitioner; Physician Assistant; Preventive Medicine Aerospace Medicine; Surgery; Admitting Provider Internal Medicine; Emergency Provider Physician Assistant; Visit Provider Internal Medicine Critical Care Medicine
PROC: 0DJ08ZZ Inspection of Upper Intestinal Tract, Via Natural or Artificial Opening Endoscopic (ICD-10-PCS; CPT 43235; principal; 2023-04-05 14:00)
PROC: 0FT44ZZ Resection of Gallbladder, Percutaneous Endoscopic Approach (ICD-10-PCS; CPT 47562; principal; 2023-04-07 14:00)
DX: K81.0 Acute cholecystitis (principal); K21.9 Gastro-esophageal reflux disease without esophagitis; K29.70 Gastritis, unspecified, without bleeding; F41.9 Anxiety disorder, unspecified; F12.90 Cannabis use, unspecified, uncomplicated; Z72.0 Tobacco use
CPT/HCPCS: 36415; 71045; 74177; 76705; 78226; 80048; 80053; 81001; 81025; 82948; 83690; 83735; 84484; 85025; 85027; 86850; 86900; 86901; 87081; 87086; 87088; 87491; 87591; 87635; 87661; 88304; 88305; 93005; 96361; 96365; 96366; 96367; 96375; 96376; 99285; A9270; A9537; C1713; C9113; G0378; G0379; J0690; J1100; J1200; J1630; J1885; J2250; J2270; J2405; J2543; J2704; J2765; J3010; J7030; J7040; J7120; J7121; Q9967

== ENCOUNTER 2023-04-15 15:07 | Emergency (ER) | payer BC, OTHER, SELFPAY ==
--- NOTE | ~2023-04-15 | CT_ITS ---
EXAMINATION: CT abdomen pelvis w con DATE: 04/15/2023 20:46 INDICATION: Right-sided abdominal pain, nausea. Recent cholecystectomy (04/07/2023). TECHNIQUE: Computed tomography (CT) of the abdomen and pelvis was performed with 100 CC Omnipaque 350 intravenous contrast. Automated exposure control and iterative reconstruction technique were employe d. Exam dose: 321.74 mGy-cm total exam DLP. COMPARISON: 04/03/2023 CT abdomen pelvis FINDINGS: The lung bases are clear. Normal heart size. No pericardial or pleural effusion. Status post cholecystectomy. Borderline common bile duct and intrahepatic bile duct size, likely seco ndary to cholecystectomy. Normal pancreatic duct size. No abnormal fluid collection is noted in the g allbladder fossa. No hepatic, splenic, pancreatic, and adrenal or renal space-occupying mass lesion is detected. Normal caliber of the abdominal aorta. No intraperitoneal or retroperitoneal or pelvic mass lesion or adenopathy. Peripherally enhancing 11 mm left ovarian corpus luteum cyst. Peripherally enhancing approximately 1. 9 cm right ovarian corpus luteum cyst. Approximately 2.9 cm right ovarian cyst. Mild free fluid in th e cul-de-sac may be physiologic. No suspicious osteolytic or osteoblastic lesions. IMPRESSION: Status post cholecystectomy Ovarian cysts Reviewed, dictated and finalized at [facility] Reviewed, dictated and finalized at [facility].
--- NOTE | ~2023-04-15 | US_ITS ---
US pelvic complete DATE: 04/15/2023 22:00 INDICATION: Midline pelvic pain. TECHNIQUE: Real-time imaging via transabdominal and transvaginal approaches COMPARISON: 04/15/2023 CT abdomen pelvis FINDINGS: The uterus measures 8.6 cm height, 4.6 cm AP and 6.1 cm transverse dimension. This endometr ial echo complex measures up to approximately 6.6 mm AP dimension. There is a septated cyst in the right adnexal area measuring up to 2.8 x 2.4 x 2.6 cm, with through t ransmission and posterior enhancement. The right ovary measures 4.2 x 3.3 x 4.7 cm with vascular flow. The left ovary measures 2.9 x 1.5 x 3.1 cm with vascular flow. Mild free fluid is noted in the right adnexal area. IMPRESSION: 2.8 cm septated right ovarian cyst. Mild free fluid in the right adnexal area Reviewed, dictated and finalized at [facility] Reviewed, dictated and finalized at [facility]. IMPRESSION: 2.8 cm septated right ovarian cyst. Mild free fluid in the right ad nexal area
[2023-04-15 15:44] VITALS: BP 114/68; PULSE 83; RESP 12; TEMP 36.9; O2SAT 100
[2023-04-15 18:53] VITALS: BP 122/80; PULSE 80; RESP 12; O2SAT 100
--- NOTE | 2023-04-15 19:00 | ED.ABDPAIN ---
HPI - Abdominal Pain General Chief Complaint: Abdominal Pain Stated Complaint: abdominal pain - post cholecystectomy 04/07 Time Seen by Provider: 04/15/23 18:49 Source: patient and old records reviewed Mode of arrival: ambulatory Limitations: no limitations History of Present Illness HPI narrative: Patient is a 23-year-old female who presents to the ED with report of abdominal pain. Patient was recently admitted to the hospital on 04/03 for intractable right upper quadrant abdominal pain, unable to tolerate p.o. intake. She ultimately underwent laparoscopic cholecystectomy under Dr. Jones on 04/07. Patient states she has been doing fairly well since the surgery until her toddler jumped on her abdomen on Tuesday. She has had worsening right-sided abdominal pain since then, which became more severe last night. She states pain is constant. She has taken Tylenol for the pain, last took this around noon today. She was prescribed Keller after the surgery, but states this did not help with her pain so she has not tried this. She reports nausea with any intake, denies vomiting. Denies diarrhea or constipation. Denies fevers. Denies urinary complaints. Related Data Allergies Allergy/AdvReac Type Severity Reaction Status Date / Time No Known Allergies Allergy Unknown Verified 04/15/23 15:09 Review of Systems Review of Systems: CONSTITUTIONAL: Denies fever, chills, or sweats. CARDIOVASCULAR: Denies chest pain. RESPIRATORY: Denies dyspnea. GASTROINTESTINAL: See HPI. GENITOURINARY: Denies dysuria or hematuria. SKIN: Denies rash or itching. MUSCULOSKELETAL: Denies back pain, joint pain, or myalgia. All systems reviewed & are unremarkable except as noted in HPI and below PMFSH Past Medical History Medical History Anxiety Depression Encounter for IUD removal 03/19/20 Mirena removal Healthy adult IBS (irritable bowel syndrome) Obesity PCR DNA positive for HSV1 Vaginal delivery 04/21/17 ICP in mother Nettie 02/02/21 no complications Cande Surgical History Surgical History History of appendectomy (11/30/16) Family History Family History Father Diabetes mellitus Mother Lupus Multiple sclerosis Gallbladder disease Social History Social History Social History: Patient elected her mother to be her surrogate and has 2 kids. 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 patient wishes to be a full code at this time Smoking packs per day: 1 Smoking cigarettes per day: 20.0 Years smoked: 1 Smoking pack-years: 1.00 Smoking status: Former smoker Tobacco type: e-cigarettes/vaping Second hand tobacco smoke exposure: No Smoking end date: 07/25/20 Additional smoking assessment comments: patient still vapes but does not smoke cigarettes anymore Alcohol intake: never Substance use: current Substance use type: marijuana Other substance usage details: USES CBD OIL FOR ANXIETY, smoke marijuana daily Last use: Yesterday Lack of Transportation: No Lack of Food: Never True Current Housing: I Have Housing Concerned About Future Housing: No Difficulty Paying Gas/Electric Bills: No Difficulty Paying for Meds: No Currently Unemployed: No Education: High School Diploma/GED Difficulty w/ Childcare or Family Care: No Living arrangements: with family Occupation/Education: occupation Gender identity (if verbalized by the patient): Female Sexual Orientation (if Verbalized by the Patient): Straight or Heterosexual Spiritual care concerns: No Agree to blood products: Yes Exam Narrative: GENERAL: Well appearing, thin, non-toxic, in no acute distress. HEAD: Normocephalic, atraumatic. NECK: Supple. No adenopat
[2023-04-15 19:03] LABS: Basophils Percent Auto 0.4 % (0.2-1.2); Eosinophils Absolute Auto 0.1 K/mm3 (0-0.3); Eosinophils Percent Auto 1.5 % (0-4.4); Hemoglobin 13.8 g/dL (12.0-15.0); Immature Granulocyte Absolute 0.03 K/mm3 (0.00-0.031); Immature Granulocyte Percent A 0.3 % (0-0.5); Lymphocytes Absolute Auto 2.49 K/mm3 (0.9-3.2); Lymphocytes Percent Auto 27.9 % (18.3-44.2); Mean Corpuscular HGB Conc 32.9 g/dl (32-36); Mean Corpuscular Hemoglobin 31.3 pg (26-34); Mean Corpuscular Volume 95.2 fl (80-100); Mean Platelet Volume 10.4 fl (7.4-10.4); Monocytes Absolute Auto 0.8 K/mm3 (0.1-0.6); Monocytes Percent Auto 8.5 % (2.6-8.5); Neutrophils Absolute Auto 5.5 K/mm3 (1.3-6.7); Neutrophils Percent Auto 61.4 % (45.5-73.1); Platelet Count Result 224 k/mm3 (150-375); Red Blood Count 4.41 M/mm3 (4.2-5.4); Red Cell Distribution Width 12.6 % (11.5-14.5); White Blood Count 8.9 K/mm3 (4.5-10.0)
[2023-04-15 19:16] LABS: Appearance Urine Clear (Clear); Bacteria Urine None Seen /hpf; Bilirubin Urine Negative (Negative); Blood Urine Negative (Negative); Color Urine Yellow (Yellow); Glucose Urine UA Negative (Negative); Ketones Urine Negative (Negative); Leukocyte Esterase Ur 1+ LEU/UL (Negative); Nitrate Urine Negative (Negative); Non Pathogenic Casts 0-2; Protein Urine Negative (Negative); RBC Urine 0-2 /hpf (0-2); Specific Grav Ur 1.017 (1.001-1.035); Squamous Epithelial Cell Urine Few /hpf (Few); Urobilinogen Urine 0.2 mg/dL (<2.0); pH Urine 6.5 (5.0-9.0)
[2023-04-15 19:20] LABS: Alanine Aminotransferase 21 U/L (6-35); Albumin Level 4.7 g/dL (3.5-5.1); Alkaline Phosphatase 59 U/L (38-126); Anion Gap 8 mmol/L (8-16); Aspartate Amino Transferase 23 U/L (14-36); Bilirubin,Total 0.6 mg/dL (0.2-1.3); Blood Urea Nitrogen 13 mg/dL (7-17); Calcium 9.2 mg/dL (8.4-10.2); Carbon Dioxide 27 mmol/L (22-30); Chloride 103 mmol/L (98-107); Estimated CRCL calculation 108 ml/min; Estimated Glomerular Filt Rate > 60; Glucose 83 mg/dL (65-110); Lipase 100 U/L (23-300); Potassium 3.9 mmol/L (3.4-5.0); Sodium 138 mmol/L (137-145)
[2023-04-15 19:22] LABS: Add Urine Microscopic? YES
[2023-04-15] MEDS: SODIUM CHLORIDE 0.9% IV 1,000 ML 999 ML IV CONT (19:55)
[2023-04-15] MEDS: ONDANSETRON INJ 4 MG/2 ML VIAL IV PUSH (19:55)
[2023-04-15] MEDS: MORPHINE SULFATE (*CRX) 4 MG/ML INJ IV PUSH ×2 (19:55→21:19)
[2023-04-15] MEDS: KETOROLAC 30 MG/ML VIAL (*BKC) IV PUSH (23:13)
[2023-04-15 23:20] VITALS: BP 108/78; PULSE 82; RESP 16; O2SAT 100
== END 2023-04-15 23:40 | disposition home or self-care (01) ==
PROVIDERS: Emergency Medicine; Emergency Provider Physician Assistant
DX: R10.11 Right upper quadrant pain (principal); R11.0 Nausea; N83.201 Unspecified ovarian cyst, right side; K58.9 Irritable bowel syndrome, unspecified; E66.9 Obesity, unspecified; Z68.22 Body mass index [BMI] 22.0-22.9, adult; Z87.891 Personal history of nicotine dependence; Z90.49 Acquired absence of other specified parts of digestive tract
CPT/HCPCS: 36415; 74177; 76856; 80053; 81001; 81025; 83690; 85025; 87086; 87088; 96361; 96374; 96375; 96376; 99284; J1885; J2270; J2405; J7030; Q9967